=== PATIENT | female | born 1995 | race Caucasian/White ===

== ENCOUNTER 2019-06-04 19:28 | Emergency (ER) | payer SELFPAY ==
[2019-06-04 19:31] VITALS: BP 115/72; PULSE 90; RESP 18; TEMP 36.4; O2SAT 95; BMI 43.4
--- NOTE | 2019-06-04 19:32 | ED_ITS ---
Entered by Kamryn Victor, acting as scribe for Onel Rodriguez MD HPI - Nausea/Vomiting/Diarrhea General: Chief complaint: Nausea/Vomiting/Diarrhea Stated complaint: congested/vomiting Time Seen by Provider: 06/04/19 19:31 Source: patient Mode of arrival: ambulatory Limitations: no limitations History of Present Illness: HPI Narrative: 24 yo female presents to ED with complaints of nausea, vomiting, and coughing. She said it began last week. She said she has a lot of congestion. She has been unable to keep anything down for the last 2 days (last time vomited 1 hour ago). She said she has vomited so much that she has a rash around eyes and has popped a blood vessel in L eye. She said she usually smokes but has not for last couple of days because she has been so sick. MD elicited complaint: nausea and vomiting Onset (ago): day(s) (2) Associated nausea: Yes Associated abdominal pain: Yes Location of pain: Diffuse Radiation: diffuse Pain consistency: constant Severity: severe Quality: aching Exacerbating factors: eating Relieving factors: none Context: sick contacts and smoking Associated symtoms: Reports cough, nausea and rash; Denies change in vision, chest pain or headache(s) Treatment prior to arrival: none Review of Systems Const: Denies: fever or chills Eyes: Denies: change in vision ENMT: Denies: throat pain or mouth pain Card: Denies: chest pain Resp: Reports: shortness of breath GI: Reports: nausea : Denies: difficulty urinating Musc: Denies: back pain or joint pain Neuro: Denies: headache or behavioral changes Psych: Denies: depression Endo: Denies: excessive urination Elvin/Lymph: Denies: easy bruising All/Imm: Denies: hives PFSH ED PFSH: Statuses (acute, chronic, etc) shown below reflect problem list status as previously entered and may not be historically accurate Social History Smoking and tobacco status: current every day smoker Physical Exam Const: COMMON NORMALS: no apparent distress and healthy appearing HENMT: COMMON NORMALS: normocephalic and external nose normal HEAD & SCALP: normocephalic NOSE: external nose normal and no nasal discharge (nasal dischage) Eye: COMMON NORMALS: PERRL PUPIL: Yes PERRL Neck/C-Spine: COMMON NORMALS: full ROM and no lymphadenopathy Chest: COMMONS NORMALS: inspection of chest normal Resp: COMMON NORMALS: normal respiratory effort EFFORT & INSPECTION: Yes audible wheezes Cardio: COMMON NORMALS: regular rate and regular rhythm RATE: regular rate RHYTHM: regular rhythm GI: COMMON NORMALS: soft to palpation PALPATION: Yes soft Extremity: COMMON NORMALS: normal to inspection, full ROM and normal capillary refill Psych: COMMON NORMALS: mental status grossly normal and cooperative Skin: COMMON NORMALS: no rashes or lesions noted GENERAL SKIN EXAM: no rashes or lesions noted Course Vital Signs: Vital signs: Vital Signs Temperature 97.6 F 06/04/19 19:31 Pulse Rate 78 06/04/19 21:41 Respiratory Rate 18 06/04/19 21:41 Blood Pressure 119/74 06/04/19 21:41 Pulse Oximetry 98 06/04/19 21:41 MDM - Nausea/Vomiting/Diarrhea MDM Narrative: Medical decision making narrative: Patient presents here with cough along with vomiting. Cough is likely viral in origin and her vomiting is much improved after Zofran. Will prescribe her an inhaler along with Keflex and Zofran. Patient is stable for discharge and is to follow-up with primary care doctor. She has no abdominal pain and abdominal exam here is benign. Lab Data: Labs: Lab Results 06/04/19 Range/Units 20:30 Influenza Type A A g Negative (Negative) POC Influenza B Ag Negative (Negative) Imaging Data^: CXR: Radiologist's impression: [facility] Final Radiology Report Call: [phone] assistance Online chat: [email or web address] Name: BENNETT ROSENBAUM Age: 24Years F Date: 06/04/2019 SSN: -- : [id number] Study: XR CHEST 2 VIEWS Requesting Physician: onel Rodriguez Images: 2 Add?l Studies: Provided Clinical History: Pt complain of cough and congestion x 1.5 weeks and N/V for 3 days CONFIDENTIALITY STATEMENT This report is intended only for use by the referring physician, and only in accordance with law. If you received this in error, call [phone]. Page 1 of 1 PROCEDURE INFORMATION: Exam: XR Chest, 2 Views Exam date and time: 06/04/2019 7:38 PM Age: 24 years old Clinical indication: Cough; Additional info: PT complain of cough and congestion x 1.5 weeks and n/v for 3 days TECHNIQUE: Imaging protocol: XR of the chest Views: 2 views. COMPARISON: CR Chest 1 [place] [id number] 01/04/2019 12:50 AM FINDINGS: Lungs: Unremarkable. No consolidation. Pleural space: Unremarkable. No pleural effusion. No pneumothorax. Heart/Mediastinum: Unremarkable. No cardiomegaly. Bones/joints: Unremarkable. IMPRESSION: No acute findings. Thank you for allowing us to participate in the care of your patient. Dictated and Authenticated by: Radha Garcias MD 06/04/2019 Discharge Plan Discharge Patient Disposition: Home, Self-Care Clinical Impression: Acute upper respiratory infection, Vomiting Condition: Stable Prescriptions: New Keflex 500 mg capsule 500 mg PO Q6H 7 Days Qty: 28 RF: 0 albuterol sulfate 90 mcg/actuation HFA aerosol inhaler 2 inh INHALATION Q6H PRN (Reason: shortness of breath) Qty: 8 RF: 0 Zofran 4 mg tablet 4 mg PO QID PRN (Reason: nausea and vomiting) Qty: 14 RF: 0 Discharge Orders: Discharge Order (Routine); Ordered 06/04/19 Ordered By: Onel Rodriguez Referrals: Jaison Ga MD [Primary Care Provider] - 4-7 days Discharge Diet: Advance as tolerated Discharge Activity: Resume usual activity Patient Instructions: Upper Respiratory Infection (ED), Acute Nausea and Vomiting (ED) Discharge Date/Time: 06/04/19 21:42 Coding Level of Care Code ED Employee Benefits Specialist for Chg Fwd Exam Problem Focused The documentation recorded by the Kayleigh moss Valerie R, accurately reflects the service I personally performed and the decisions made by Michael suresh Korby, MD Jun 04, 2019 19:28
--- NOTE | 2019-06-04 19:37 | XRR_ITS ---
PROCEDURE INFORMATION: Exam: XR Chest, 2 Views Exam date and time: 06/04/2019 7:38 PM Age: 24 years old Clinical indication: Cough; Additional info: PT complain of cough and congestion x 1.5 weeks and n/v for 3 days TECHNIQUE: Imaging protocol: XR of the chest Views: 2 views. COMPARISON: CR Chest 1 [place] [id number] 01/04/2019 12:50 AM FINDINGS: Lungs: Unremarkable. No consolidation. Pleural space: Unremarkable. No pleural effusion. No pneumothorax. Heart/Mediastinum: Unremarkable. No cardiomegaly. Bones/joints: Unremarkable. XR/XR chest 2V* [id number] IMPRESSION: No acute findings.
[2019-06-04] MEDS: dexamethasone 10 mg/mL INJ IM (20:05)
[2019-06-04] MEDS: ondansetron 4 MG Tablet PO (20:05)
[2019-06-04 21:04] LABS: Influenza A by IFA Negative (Negative); Influenza B by IFA Negative (Negative)
[2019-06-04 21:41] VITALS: BP 119/74; PULSE 78; RESP 18; O2SAT 98
== END 2019-06-04 21:42 | disposition home or self-care (01) ==
PROVIDERS: Emergency Provider Emergency Medicine; PCP Family Medicine
DX: J06.9 Acute upper respiratory infection, unspecified (principal); R11.10 Vomiting, unspecified; F17.210 Nicotine dependence, cigarettes, uncomplicated
CPT/HCPCS: 71046; 87804; 96372; 99282; J1100; Q0162

== ENCOUNTER 2019-07-18 16:19 | Emergency (ER) | payer SELFPAY ==
[2019-07-18 16:28] VITALS: BP 109/71; PULSE 79; RESP 18; TEMP 36.5; O2SAT 94; BMI 44.9
--- NOTE | 2019-07-18 17:21 | W.ED.DENTAL ---
Documented by User: RODRI Ocampo 07/19/19 13:37 HPI - Dental/Oral General: Chief complaint: Dental/Oral Stated complaint: TOOTH PAIN Time Seen by Provider: 07/18/19 17:14 History of Present Illness: HPI Narrative: Patient is a 24-year-old female comes to the ED with dental pain. Patient says that she had a filling on her tooth #18 that popped off. She now has pain and tooth sensitivity. Any pressure hurts her tooth and it is sensitive to cold/heat. Symptoms started a couple days ago. She does not have a regular dentist and is been calling around to get something scheduled. Associated symptoms: Denies fever(s) or painful swallowing Review of Systems Const: Denies: fever, chills or fatigue Eyes: Denies: change in vision or eye discomfort ENMT: Reports: dental pain; Denies: throat pain, painful swallowing, nasal discharge or nasal congestion Card: Denies: chest pain, palpitations, edema, swelling of feet/ankles, shortness of breath on exertion or shortness of breath when lying down Resp: Denies: shortness of breath, productive cough or non-productive cough GI: Denies: abdominal pain, nausea, vomiting, diarrhea, constipation or blood in stool : Denies: flank pain, painful urination or blood in urine Musc: Denies: neck pain, back pain or extremity swelling Skin/Breast: Denies: rash or new lesion Neuro: Denies: headache, numbness in extremities or weakness in extremities PFS ED PFSH: Social History Smoking and tobacco status: current every day smoker Female Reproductive History: Date of last menstrual period: 06/04/19 Physical Exam Const: COMMON NORMALS: oriented x3 HENMT: COMMON NORMALS: normocephalic HEAD & SCALP: normocephalic MOUTH: oral and palatal mucosa normal TEETH & GINGIVA: Yes caries (Tooth number 18 had carier with cavity.) THROAT: posterior oropharynx normal and uvula midline Neck/C-Spine: COMMON NORMALS: supple GENERAL: Yes normal visual inspection Resp: COMMON NORMALS: normal respiratory effort, no retractions, no use of accessory muscles and clear to auscultation bilaterally AUSCULTATION: clear to auscultation bilaterally Cardio: COMMON NORMALS: regular rate, regular rhythm, S1 normal heart sound, S2 normal heart sound, no gallops, no clicks, no murmurs and peripheral pulses 2+ throughout RATE: regular rate RHYTHM: regular rhythm HEART SOUNDS: S1 normal and S2 normal PERIPHERAL PULSES: pulses 2+ throughout GI: COMMON NORMALS: normal to inspection, nondistended, normoactive bowel sounds, soft to palpation, non-tender and no masses PALPATION: Yes soft : COMMON NORMALS: Yes no CVA tenderness BLADDER/KIDNEY EXAM: Yes no CVA tenderness Back/Pelvis: COMMON NORMALS: no CVA tenderness Extremity: COMMON NORMALS: normal to inspection Neuro: COMMON NORMALS: oriented x3 and moves all extremities Skin: COMMON NORMALS: no rashes or lesions noted GENERAL SKIN EXAM: no rashes or lesions noted and dry skin Course Vital Signs: Vital signs: Vital Signs Temperature 97.7 F 07/18/19 16:28 Pulse Rate 68 07/18/19 17:53 Respiratory Rate 18 07/18/19 17:53 Blood Pressure 125/74 07/18/19 17:53 Pulse Oximetry 98 07/18/19 17:53 Discharge Plan Discharge Patient Disposition: Home, Self-Care Clinical Impression: Dental caries, Toothache Condition: Stable Prescriptions: New clindamycin HCl 150 mg capsule 300 mg PO QID 7 Days Qty: 56 RF: 0 No Action albuterol sulfate 90 mcg/actuation HFA aerosol inhaler 2 inh INHALATION Q6H PRN (Reason: shortness of breath) Qty: 8 RF: 0 Zofran 4 mg tablet 4 mg PO QID PRN (Reason: nausea and vomiting) Qty: 14 RF: 0 Discharge Orders: Discharge Order (Routine); Ordered 07/18/19 Ordered By: Jaison Aponte Referrals: Jaison Ga MD [Primary Care Provider] - Discharge Diet: Regular Discharge Activity: Resume usual activity Patient Instructions: Dental Caries (Cavities), Toothache (ED) Activity Restrictions/Additional Instructions: Follow-up with a dentist in the next 7 days for reevaluation. Take full course of antibiotics as prescribed. Take ibuprofen or Tylenol to help with pain. Discharge Date/Time: 07/18/19 17:56 Coding Level of Care Code ED Water Softener Service Supervisor for Chg Fwd Exam Comprehensive Documented by User: Sejal Ramirez 07/19/19 17:29 HPI - Dental/Oral General: Chief complaint: Dental/Oral Stated complaint: TOOTH PAIN Time Seen by Provider: 07/18/19 17:14 PFSH ED PFSH: Social History Smoking and tobacco status: current every day smoker Course Vital Signs: Vital signs: Vital Signs Temperature 97.7 F 07/18/19 16:28 Pulse Rate 68 07/18/19 17:53 Respiratory Rate 18 07/18/19 17:53 Blood Pressure 125/74 07/18/19 17:53 Pulse Oximetry 98 07/18/19 17:53 MDM - Dental/Oral MDM Narrative: Medical decision making narrative: This patient was not seen by me nor evaluated by me nor discussed with me by the midlevel provider. I was available in the ER if needed throughout their stay but was not involved or contacted about their care. I am signing this chart per hospital policy ? Dr. Ramirez. Discharge Plan Discharge Patient Disposition: Home, Self-Care Clinical Impression: Dental caries, Toothache Condition: Stable Prescriptions: New clindamycin HCl 150 mg capsule 300 mg PO QID 7 Days Qty: 56 RF: 0 No Action albuterol sulfate 90 mcg/actuation HFA aerosol inhaler 2 inh INHALATION Q6H PRN (Reason: shortness of breath) Qty: 8 RF: 0 Zofran 4 mg tablet 4 mg PO QID PRN (Reason: nausea and vomiting) Qty: 14 RF: 0 Discharge Orders: Discharge Order (Routine); Ordered 07/18/19 Ordered By: Jaison Aponte Referrals: Jaison Ga MD [Primary Care Provider] - Discharge Diet: Regular Discharge Activity: Resume usual activity Patient Instructions: Dental Caries (Cavities), Toothache (ED) Activity Restrictions/Additional Instructions: Follow-up with a dentist in the next 7 days for reevaluation. Take full course of antibiotics as prescribed. Take ibuprofen or Tylenol to help with pain. Discharge Date/Time: 07/18/19 17:56 Coding Level of Care Code ED Water Softener Service Supervisor for Chg Fwd Exam Comprehensive
[2019-07-18] MEDS: HYDROcodone-acetaminophen 7.5-325 mg Tablet 1 TAB PO (17:47)
[2019-07-18 17:53] VITALS: BP 125/74; PULSE 68; RESP 18; O2SAT 98
== END 2019-07-18 17:56 | disposition home or self-care (01) ==
PROVIDERS: Emergency Provider Physician Assistant; PCP Family Medicine
DX: K02.9 Dental caries, unspecified (principal); K08.89 Other specified disorders of teeth and supporting structures; F17.200 Nicotine dependence, unspecified, uncomplicated
CPT/HCPCS: 12345; 99281; 99283

== ENCOUNTER → 2020-03-16 09:35 | Outpatient (BNVA) | payer SELFPAY | PROVIDERS: PCP Family Medicine; Visit Provider Nurse Practitioner Women's Health | DX: N91.4 Secondary oligomenorrhea (principal); E66.01 Morbid (severe) obesity due to excess calories | CPT/HCPCS: 83001; 83036; 84146; 84402; 84439; 84443; 84450; 84702 ==

== ENCOUNTER → 2020-04-12 08:35 | Outpatient (BNVA) | payer BC, MEDICAID, SELFPAY | PROVIDERS: PCP Family Medicine; Visit Provider Nurse Practitioner Women's Health | DX: N91.5 Oligomenorrhea, unspecified (principal) | CPT/HCPCS: 76830 ==

== ENCOUNTER → 2020-05-14 13:41 | Outpatient (BNVA) | payer MEDICAID, SELFPAY | PROVIDERS: PCP Family Medicine; Visit Provider Family Medicine | DX: Z13.6 Encounter for screening for cardiovascular disorders (principal); E03.9 Hypothyroidism, unspecified | CPT/HCPCS: 80053; 80061; 84439; 84443; 85025 ==

== ENCOUNTER → 2020-07-31 14:31 | Outpatient (BNVA) | payer MEDICAID, SELFPAY | PROVIDERS: PCP Family Medicine; Visit Provider Nurse Practitioner Women's Health | DX: Z30.017 Encounter for initial prescription of implantable subdermal contraceptive (principal); E28.2 Polycystic ovarian syndrome | CPT/HCPCS: 81025 ==

== ENCOUNTER → 2020-09-17 15:39 | Outpatient (BNVA) | payer MEDICAID, SELFPAY | PROVIDERS: PCP Family Medicine; Visit Provider Family Medicine | DX: E03.9 Hypothyroidism, unspecified (principal) | CPT/HCPCS: 84443 ==

== ENCOUNTER → 2020-09-24 09:53 | Outpatient (BNVA) | payer MEDICAID, SELFPAY | PROVIDERS: PCP Family Medicine; Visit Provider Nurse Practitioner Family | DX: Z20.822 Contact with and (suspected) exposure to COVID-19 (principal) | CPT/HCPCS: 87635 ==

== ENCOUNTER → 2020-12-04 11:50 | Outpatient (BNVA) | payer MEDICAID, SELFPAY | PROVIDERS: PCP Family Medicine; Visit Provider Nurse Practitioner Family | DX: J06.9 Acute upper respiratory infection, unspecified (principal); Z20.822 Contact with and (suspected) exposure to COVID-19 | CPT/HCPCS: 87635 ==

== ENCOUNTER → 2020-12-26 09:26 | Outpatient (BNVA) | payer MEDICAID, SELFPAY | PROVIDERS: PCP Family Medicine; Visit Provider Nurse Practitioner Women's Health | DX: N92.6 Irregular menstruation, unspecified (principal) | CPT/HCPCS: 81025; 84702 ==

== ENCOUNTER → 2022-01-10 11:40 | Outpatient (BNVA) | payer BC, SELFPAY | PROVIDERS: PCP Family Medicine; Visit Provider Obstetrics & Gynecology | DX: E28.2 Polycystic ovarian syndrome (principal) | CPT/HCPCS: 83036; 83525; 84443 ==

== ENCOUNTER → 2022-02-10 12:36 | Outpatient (BNVA) | payer BC, SELFPAY | PROVIDERS: PCP Family Medicine; Visit Provider Obstetrics & Gynecology | DX: E28.2 Polycystic ovarian syndrome (principal) | CPT/HCPCS: 84443 ==

== ENCOUNTER 2022-05-30 13:45 | Outpatient (CLI) | payer BC, MEDICAID, SELFPAY ==
[2022-05-30 14:42] LABS: Thyroid Stimulating Hormone 2.26 uIU/mL (0.27-4.20)
[2022-05-31 12:21] LABS: Insulin ( Reference Lab Test) 10.6 uIU/mL
== END 2022-05-30 13:46 | disposition home or self-care (01) ==
LOC: LAB 13:50
PROVIDERS: PCP Family Medicine; Visit Provider Obstetrics & Gynecology
DX: E03.9 Hypothyroidism, unspecified (principal); E66.01 Morbid (severe) obesity due to excess calories
CPT/HCPCS: 36415; 83525; 84443

== ENCOUNTER 2022-07-05 14:55 | Emergency (ER) | payer BC, MEDICAID, SELFPAY ==
[2022-07-05 15:10] VITALS: BP 113/75; PULSE 73; TEMP 36.6; O2SAT 98; BMI 40.6
[2022-07-05 15:34] LABS: HCG Qualitative Urine. Negative (Negative)
--- NOTE | 2022-07-05 15:55 | ED_ITS ---
HPI - Female Genitourinary General: Chief complaint: Vaginal Bleeding Stated complaint: Heavy spotting after positive test Time Seen by Provider: 07/05/22 15:47 Source: patient Mode of arrival: ambulatory Limitations: no limitations History of Present Illness: 27-year-old female reports that she had a menstrual cycle 1 month ago. Yesterday she noted that she had some nausea and took a test. She has a faint positive vertical line on her test which she brought with her. Today she has had vaginal spotting . She presents for testing and further evaluation if necessary. Associated symptoms: Reports nausea Review of Systems General: Reports: 10 or more systems reviewed and unremarkable except in HPI and below Const: Reports: fatigue GI: Reports: nausea : Reports: vaginal bleeding PFSH ED PFSH: Medical History ADHD Hypothyroid Migraine with aura No pertinent past medical history neghx: htn,dm,thyroid,dvt/pe TIA (transient ischemic attack) (~2018) not medically diagnosed; reported facial drooping, aphasia Surgical History No pertinent past surgical history Family History Grandmother Breast cancer Maternal and Paternal--- 46, and late 40's Ovarian cancer Maternal-- dx age late 40's Family/Other Breast cancer Paternal aunt-- unknown dx age Heart disease Paternal Aunt Stroke Maternal uncle, Paternal aunts Father Diabetes Hypertension Grandfather Heart disease Maternal Stroke MGF Sister Thyroid disease Denies family history of Colon cancer Bleeding disorder Uterine cancer Social History Smoking and tobacco status: current every day smoker Physical Exam Const: COMMON NORMALS: no limitations, alert and well nourished EXAM LIMITATIONS: no altered mental status HENMT: COMMON NORMALS: normocephalic and atraumatic HEAD & SCALP: normocephalic and atraumatic MOUTH: no muffled voice Eye: COMMON NORMALS: EOMs intact bilaterally, conjunctivae normal and no scleral icterus CONJUNCTIVA: Yes conjunctivae normal Neck/C-Spine: GENERAL: Yes normal visual inspection and Yes trachea midline Resp: COMMON NORMALS: normal respiratory effort and No use of accessory muscles GI: COMMON NORMALS: Soft to palpation and non-tender PALPATION: Yes Soft to palpation and No Guarding due to palpation present (GI) Extremity: COMMON NORMALS: normal to inspection Neuro: COMMON NORMALS: moves all extremities, no focal motor deficits and no sensory deficits noted SENSORIUM/ORIENTATION: Yes alert SPEECH: speech normal Psych: COMMON NORMALS: mental status grossly normal, Normal thought process present, cooperative, normal affect and speech normal SPEECH: Yes normal speech THOUGHT PROCESS: Normal thought process present Skin: COMMON NORMALS: turgor normal and no jaundice GENERAL SKIN EXAM: turgor normal Course Vital Signs: Vital signs: Vital Signs Temperature 98 F 07/05/22 15:10 Pulse Rate 73 07/05/22 15:10 Blood Pressure 113/75 07/05/22 15:10 Pulse Oximetry 98 07/05/22 15:10 Oxygen Delivery Me thod 07/05/22 15:10 MDM - Female Medical Decision Making Urine test is negative. The plan is to have the patient do serial test at home. If they are positive, return to the emergency department for repeat testing here. If they are negative, then it is safe to assume that her vaginal bleeding is related to a menstrual cycle. The patient's abdomen is soft and nontender. She is in no distress. Her vitals are normal. Lab Data Laboratory Results HCG, Qual Negative (Negative) 07/05/22 15:20 Discharge Plan Discharge Patient Disposition: Home Clinical Impression: Vaginal bleeding, test negative Condition: Stable Prescriptions: No Action levothyroxine 75 mcg capsule 75 mcg PO DAILY Qty: 90 5RF metformin 500 mg tablet extended release 24 hr 500 mg PO DAILY Qty: 90 4RF Discharge Orders: Discharge ED (Routine); Ordered 07/05/22 Ordered By: Brigido Samuel Referrals: Wanda Nowak DO [Primary Care Provider] - Discharge Diet: Usual diet Discharge Activity: Resume usual activity Activity Restrictions/Additional Instructions: Take serial tests at home. If positive, return to ER for confirmation. Coding Level of Care Code ED Yield Improvement Engineer for Alondra Palacios
== END 2022-07-05 15:51 | disposition home or self-care (01) ==
PROVIDERS: Emergency Provider Emergency Medicine; PCP Family Medicine
DX: N93.9 Abnormal uterine and vaginal bleeding, unspecified (principal); Z32.02 Encounter for pregnancy test, result negative; F17.210 Nicotine dependence, cigarettes, uncomplicated
CPT/HCPCS: 81025; 99283

== ENCOUNTER → 2022-07-09 09:00 | Outpatient (BNVA) | payer BC, MEDICAID, SELFPAY | PROVIDERS: PCP Family Medicine; Visit Provider Nurse Practitioner Women's Health | DX: N93.9 Abnormal uterine and vaginal bleeding, unspecified (principal); Z32.01 Encounter for pregnancy test, result positive; Z32.02 Encounter for pregnancy test, result negative | CPT/HCPCS: 81025; 84702 ==

== ENCOUNTER 2022-08-25 16:44 | Emergency (ER) | payer BC, MEDICAID, SELFPAY ==
[2022-08-25 16:59] VITALS: BP 111/75; PULSE 96; RESP 16; TEMP 37.5; O2SAT 100; BMI 37.8
--- NOTE | 2022-08-25 17:00 | W.ED.URI ---
HPI - URI/Sore Throat General: Chief Complaint: Upper Respiratory Infection Stated Complaint: sore throat, left ear pain Time Seen by Provider: 08/25/22 16:59 History of Present Illness: 27-year-old female comes in today for complaints of left-sided sore throat. Patient appears nontoxic. Patient is able to manage secretions. Patient reports symptoms started last night. 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 Patient at this time is on metformin, levothyroxine for PCOS and attempting for . Associated symptoms: Deny abdominal pain, chest pain or headache(s) Review of Systems General: Reports: 10 or more systems reviewed and unremarkable except in HPI and below Const: Reports: body aches ENMT: Reports: throat pain Card: Denies: chest pain Resp: Denies: dyspnea GI: Denies: abdominal pain : Denies: flank pain Musc: Denies: back pain or extremity pain Skin/Breast: Denies: rash Neuro: Denies: headache(s) PFSH ED PFSH: Medical History ADHD Hypothyroid Migraine with aura No pertinent past medical history neghx: htn,dm,thyroid,dvt/pe TIA (transient ischemic attack) (~2018) not medically diagnosed; reported facial drooping, aphasia Surgical History No pertinent past surgical history Family History Grandmother Breast cancer Maternal and Paternal--- 46, and late 40's Ovarian cancer Maternal-- dx age late 40's Family/Other Breast cancer Paternal aunt-- unknown dx age Heart disease Paternal Aunt Stroke Maternal uncle, Paternal aunts Father Diabetes Hypertension Grandfather Heart disease Maternal Stroke MGF Sister Thyroid disease Denies family history of Colon cancer Bleeding disorder Uterine cancer Social History Smoking and tobacco status: current every day smoker Physical Exam Const: COMMON NORMALS: alert HENMT: COMMON NORMALS: normocephalic HEAD & SCALP: normocephalic THROAT: abnormal tonsil right erythema and exudates and left exudates, hypertrophy and crypts (Drainage) Eye: GENERAL EYE: appearance normal, both eyes and all related structures Neck/C-Spine: COMMON NORMALS: full ROM Lymph: LYMPHATIC: no lymphadenopathy noted Lymphadenopathy laterality: left (Mild left anterior) Resp: COMMON NORMALS: normal respiratory effort and clear to auscultation bilaterally AUSCULTATION: clear to auscultation bilaterally Cardio: COMMON NORMALS: regular rate and regular rhythm RATE: regular rate RHYTHM: regular rhythm GI: COMMON NORMALS: Soft to palpation PALPATION: Yes Soft to palpation Back/Pelvis: COMMON NORMALS: thoracic and lumbar spine normal to inspection Neuro: SENSORIUM/ORIENTATION: Yes alert Course Vital Signs: Vital signs: Vital Signs Temperature 99.5 F 08/25/22 16:59 Pulse Rate 96 08/25/22 16:59 Respiratory Rate 16 08/25/22 16:59 Blood Pressure 111/75 08/25/22 16:59 Pulse Oximetry 100 08/25/22 16:59 Oxygen Delivery Me thod Room Air 08/25/22 16:59 MDM - URI/Sore Throat Medical Decision Making 27-year-old female comes in today for complaints of sore throat worst being on the left than the right. On exam patient has some exudate to bilateral tonsils more increased swelling is noted to the left than the right tonsil. Airway is intact. Patient is managing secretions well. Vital signs are normal. Differential diagnosis includes strep pharyngitis, tonsillitis, tonsillar abscess, tonsillar cancer. No signs of severe illness was noted. Airway was intact and patient was managing secretions well. Due to the asymmetry of the illness I recommended follow-up with ENT for further evaluation and resolution of illness. Patient agreed with plan and case management order was placed. Patient was also recommended to return to the ER for worsening symptoms which she reported understanding. Lab Data Laboratory Results Group A Strep Rapid Negative (Negative) 08/25/22 17:38 Discharge Plan Discharge Patient Disposition: Home Clinical Impression: Exudative tonsillitis Condition: Stable Prescriptions: New clindamycin HCl 300 mg capsule 300 mg PO Q6H 7 Days Qty: 28 0RF ketorolac 10 mg tablet 10 mg PO Q6H PRN (Reason: pain) Qty: 14 0RF No Action levothyroxine 75 mcg capsule 75 mcg PO DAILY Qty: 90 5RF metformin 500 mg tablet extended release 24 hr 500 mg PO DAILY Qty: 90 4RF norethindrone (contraceptive) 0.35 mg tablet 0.35 mg PO DAILY Qty: 84 4RF Discharge Orders: Discharge ED (Routine); Ordered 08/25/22 Ordered By: Manjeet Falk Discharge Diet: Usual diet Discharge Activity: Increase activity as tolerated Patient Instructions: Tonsillitis (ED) Activity Restrictions/Additional Instructions: Take antibiotics clindamycin 300 mg 4 times a day for the next 7 days. Drink plenty of water with medication. Use acetaminophen to help control pain. Use ketorolac 10 mg 1 tablet every 6 hours as needed for severe pain. Do not use ketorolac with ibuprofen or naproxen containing products as it can lead to gastric irritation and GI bleed. Follow-up with primary care as needed. Case management will contact you for ENT follow-up. Return to emergency department for worsening symptoms such as inability to swallow and manage secretions, difficulty breathing or new concerns. Coding Level of Care Code ED Tawer for Alondra Palacios
[2022-08-25 18:06] LABS: Rapid Strep A Test Negative (Negative)
[2022-08-25] MEDS: clindamycin 150 mg Capsule 300 MG PO (18:10)
[2022-08-25] MEDS: ketorolac 30 mg/mL INJ IM (18:11)
[2022-08-25] MEDS: dexamethasone 10 mg/mL INJ IM (18:11)
--- NOTE | 2022-08-26 10:10 | DCPLANNER ---
Addendum entered by Krista Bell 09/23/22 14:51: This appointment was rescheduled Addendum entered by Krista Bell 08/28/22 07:48: Patient has a follow up appointment scheduled for Friday, September 16, 2022 at 8:[address] Romano at [facility]. Original Note: investments manager had message to schedule a follow up appointment for patient with ENT. investments manager sent patients information to the front office staff at [facility]. Patients information will be printed and reviewed. Clinic will call patient with appointment information.
--- NOTE | 2022-08-29 11:10 | DCPLANNER ---
product line manager called patient due to no primary care physician - patient stated that she sees Wanda Nowak for primary care.
== END 2022-08-25 18:21 | disposition home or self-care (01) ==
PROVIDERS: Emergency Provider Nurse Practitioner Family; PCP Family Medicine
DX: J03.90 Acute tonsillitis, unspecified (principal); Z79.84 Long term (current) use of oral hypoglycemic drugs; F17.210 Nicotine dependence, cigarettes, uncomplicated; Z86.73 Personal history of transient ischemic attack (TIA), and cerebral infarction without residual deficits
CPT/HCPCS: 87081; 87880; 96372; 99284; J1100; J1885

== ENCOUNTER → 2022-10-20 16:47 | Outpatient (BNVA) | payer BC, MEDICAID, SELFPAY | PROVIDERS: PCP Family Medicine; Visit Provider Registered Nurse Neonatal Intensive Care | DX: R05.9 Cough, unspecified (principal); B34.9 Viral infection, unspecified | CPT/HCPCS: 87426 ==

== ENCOUNTER → 2022-12-23 08:03 | Outpatient (BNVA) | payer BC, MEDICAID, SELFPAY | PROVIDERS: PCP Family Medicine; Visit Provider Nurse Practitioner Women's Health | DX: N92.6 Irregular menstruation, unspecified (principal) | CPT/HCPCS: 84702 ==

== ENCOUNTER 2023-01-16 12:21 | Emergency (ER) | payer BC, MEDICAID, SELFPAY ==
[2023-01-16 12:29] VITALS: BP 104/70; PULSE 73; RESP 18; TEMP 37.1; O2SAT 97; BMI 35.5
--- NOTE | 2023-01-16 12:43 | XR_ITS ---
WS: [id number] Cervical spine, 3 views, 01/16/2023 Clinical Data: neck pain, decreased ROM Comparison: Cervical spine, 01/04/2007 Findings: No compression fractures are seen. The disc heights are normal. There is no prevertebral so ft tissue swelling. The odontoid is unremarkable. The soft tissues of the neck and the lung apices ar e normal. Impression: Negative cervical spine.
--- NOTE | 2023-01-16 14:52 | W.ED.NECK ---
HPI - Neck Pain/Injury General: Chief Complaint: Neck Pain/Injury Stated Complaint: neck pain Time Seen by Provider: 01/16/23 14:33 Source: patient Mode of arrival: ambulatory Limitations: no limitations History of Present Illness: 28-year-old female presents to the ER today for left-sided neck stiffness and pain that began this morning. Patient reports no known injury. She reports when she woke up this morning she noticed some stiffness and is continued to worsen to the point that she cannot move her neck much without significant pain that radiates down her left arm. Patient reports she had this a couple of years ago and had to have a trigger point injection put in it. Patient denies doing anything different yesterday than normal. 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 Patient has not done anything for the pain at home today. Denies any numbness or tingling. Denies any other symptoms. Denies fever or chills. Review of Systems General: Reports: 10 or more systems reviewed and unremarkable except in HPI and below PFSH ED PFSH: Medical History ADHD Hypothyroid Migraine with aura No pertinent past medical history neghx: htn,dm,thyroid,dvt/pe TIA (transient ischemic attack) (~2018) not medically diagnosed; reported facial drooping, aphasia Surgical History No pertinent past surgical history Family History Grandmother Breast cancer Maternal and Paternal--- 46, and late 40's Ovarian cancer Maternal-- dx age late 40's Family/Other Breast cancer Paternal aunt-- unknown dx age Heart disease Paternal Aunt Stroke Maternal uncle, Paternal aunts Father Diabetes Hypertension Grandfather Heart disease Maternal Stroke MGF Sister Thyroid disease Denies family history of Colon cancer Bleeding disorder Uterine cancer Social History Smoking and tobacco status: current every day smoker Substance/Drug Use: never Physical Exam Const: COMMON NORMALS: average body habitus, patient oriented x3, no limitations, healthy appearing, alert and well nourished HENMT: COMMON NORMALS: normocephalic, atraumatic, external ears normal, Normal nasal mucous membranes and turbinates present and moist oral mucous membranes HEAD & SCALP: normocephalic and atraumatic NOSE: Normal nasal mucous membranes and turbinates present EXTERNAL EAR: Yes external ears normal Eye: COMMON NORMALS: conjunctivae normal CONJUNCTIVA: Yes conjunctivae normal Neck/C-Spine: COMMON NORMALS: no lymphadenopathy CERVICAL SPINE: Yes cervical ROM abnormal (tenderness and decreased ROM with flexion and rotation to the right) and Yes pain with cervical ROM OTHER: tenderness over the L sternocleidomastoid and trapezius Lymph: LYMPHATIC: no lymphadenopathy noted Resp: COMMON NORMALS: normal respiratory effort EFFORT & INSPECTION: Yes able to speak in complete sentences Cardio: COMMON NORMALS: regular rate and regular rhythm RATE: regular rate RHYTHM: regular rhythm Extremity: COMMON NORMALS: normal to inspection, full ROM and no pedal edema Neuro: COMMON NORMALS: patient oriented x3 SENSORIUM/ORIENTATION: Yes alert Psych: COMMON NORMALS: mental status grossly normal, Normal thought process present and cooperative THOUGHT PROCESS: Normal thought process present Skin: COMMON NORMALS: no rashes or lesions noted and no wounds GENERAL SKIN EXAM: no rashes or lesions noted Course ED course: Patient presents to the ER with left-sided neck pain and stiffness that began this morning. Denies any known injury. She did not do anything different than normal yesterday. Patient reports it is continued to get stiffer throughout the day. She has not take anything at this time. She had this a couple of years ago and needed trigger point injections. No history of neck problems. Patient has no numbness or tingling. No recent illnesses. No fever or chills reported. Vital signs are stable. Exam reveals decreased range of motion secondary to stiffness and pain over the left sternocleidomastoid and trapezius. Vital Signs: Vital signs: Vital Signs Temperature 98.7 F 01/16/23 12:29 Pulse Rate 73 01/16/23 12:29 Respiratory Rate 18 01/16/23 12:29 Blood Pressure 104/70 01/16/23 12:29 Pulse Oximetry 97 01/16/23 12:29 MDM - Neck Pain/Injury Medical Decision Making Patient appears to have a mild cervical strain of the left side of her neck. Tenderness of the left sternocleidomastoid and trapezius is noted with decreased range of motion secondary to stiffness and pain. Patient has no other symptoms that are concerning at this time. I would recommend we treat this conservatively with muscle relaxers and anti-inflammatories. Recommended topical Voltaren gel. Also recommended warm, moist heat. Okay to use a topical muscle rub but do not use with heat. Recommended stretches. If symptoms or not improving in 5 to 7 days follow-up with PCP. For any new or worsening symptoms return to the ER. Patient verbalized understanding was in agreement with the treatment plan. Critical Care Time Critical Care Time: Critical Care Time: No Discharge Plan Discharge Patient Disposition: Home Clinical Impression: Cervical strain, acute Qualifiers: Encounter type: initial encounter Qualified Code(s): S16.1XXA - Strain of muscle, fascia and tendon at neck level, initial encounter Condition: Stable Prescriptions: New ketorolac 10 mg tablet 10 mg PO Q8H 3 Days Qty: 12 0RF methocarbamol 750 mg tablet 750 mg PO Q8H Qty: 21 0RF Discontinued ketorolac 10 mg tablet 10 mg PO Q6H PRN (Reason: pain) Qty: 14 0RF No Action clotrimazole 10 mg alyse 10 mg mucous membrane TID 10 Days Qty: 30 0RF albuterol sulfate [Ventolin HFA] 90 mcg/actuation HFA aerosol inhaler 2 puff inhalation Q6H PRN (Reason: shortness of breath or wheezing) Qty: 8.5 0RF levothyroxine 75 mcg capsule 75 mcg PO DAILY Qty: 90 5RF metformin 500 mg tablet extended release 24 hr 500 mg PO DAILY Qty: 90 4RF norethindrone (contraceptive) 0.35 mg tablet 0.35 mg PO DAILY Qty: 84 4RF Discharge Orders: Discharge ED (Routine); Ordered 01/16/23 Ordered By: Katherine Cantu Referrals: Wanda Nowak DO [Primary Care Provider] - Discharge Diet: Usual diet Discharge Activity: Increase activity as tolerated Patient Instructions: Cervical Strain (DC), Opioid Safety, Pain Management Activity Restrictions/Additional Instructions: Take Robaxin/methocarbamol and ketorolac as prescribed. Warm, moist heat recommended on the left side of the neck. Topical muscle rubs such as Bengay or IcyHot also recommended but do not use with heat. Topical Voltaren gel recommended. Stretching recommended. Follow-up with PCP in 5 to 7 days if no improvement. Return to the ER with any new or worsening symptoms. Coding Level of Care Code ED Technical Support Technician for Alondra Palacios
== END 2023-01-16 14:57 | disposition home or self-care (01) ==
PROVIDERS: Emergency Provider Physician Assistant; PCP Family Medicine
DX: S16.1XXA Strain of muscle, fascia and tendon at neck level, initial encounter (principal); Z79.84 Long term (current) use of oral hypoglycemic drugs; F17.210 Nicotine dependence, cigarettes, uncomplicated; Z86.73 Personal history of transient ischemic attack (TIA), and cerebral infarction without residual deficits; X58.XXXA Exposure to other specified factors, initial encounter
CPT/HCPCS: 72040; 99283

== ENCOUNTER → 2023-01-21 15:47 | Outpatient (BNVA) | payer BC, MEDICAID, SELFPAY | PROVIDERS: PCP Family Medicine; Visit Provider Nurse Practitioner Women's Health | DX: Z32.00 Encounter for pregnancy test, result unknown (principal); Z20.2 Contact with and (suspected) exposure to infections with a predominantly sexual mode of transmission; Z12.4 Encounter for screening for malignant neoplasm of cervix | CPT/HCPCS: 81025; 87491; 87591; 88175 ==

== ENCOUNTER 2023-04-05 08:47 | Emergency (ER) | payer BC, MEDICAID, SELFPAY ==
[2023-04-05 09:02] VITALS: BP 123/72; PULSE 74; RESP 16; TEMP 36.8; O2SAT 100; BMI 33.0
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
[2023-04-05 10:16] VITALS: BP 118/76; PULSE 88; O2SAT 97
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
[2023-04-05 11:43] VITALS: BP 105/52; PULSE 61; O2SAT 96
--- NOTE | 2023-04-05 11:49 | PC.PHAR ---
PT AND FAMILY STATE SHE STILL TAKES THE MEDS ON HER LIST. EXTERNAL MED LIST SHOWS FILL DATES OF JULY AND OCTOBER! 04/05/23
[2023-04-05 12:00] VITALS: BP 111/64; PULSE 62; O2SAT 99
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
[2023-04-05 12:30] VITALS: BP 113/69; PULSE 67; O2SAT 97
[2023-04-05 12:34] LABS: Glucose Point of Care 93 mg/dL (70-110)
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
[2023-04-05 13:00] VITALS: BP 114/72; PULSE 67; O2SAT 98
[2023-04-05 13:16] LABS: HCG Qualitative Urine. Negative (Negative)
[2023-04-05 13:24] LABS: Bilirubin Urine Neg (Negative); Blood Urine Neg (Negative); Glucose Urine UA Norm (Normal); Ketones Urine 1+ (Negative); Leukocyte Esterase Urine Negative (Negative); Nitrate Urine Negative (Negative); Protein Urine Neg (Negative); Specific Gravity, Urine 1.005 (1.005-1.030); Squamous Epithelial Cell Urine 0-4 /hpf (0-5); Urine Appearance Clear (CLEAR); Urine Color Yellow (Yellow); Urobilinogen Urine Norm (Negative); WBC Urine 0-4 /hpf (0-5); pH Urine 7 (5-7)
[2023-04-05 13:25] LABS: Add Urine Culture? No; Bacteria Urine TRACE /hpf
[2023-04-05 14:06] LABS: Glucose Point of Care 76 mg/dL (70-110)
== END 2023-04-05 14:23 | disposition home or self-care (01) ==
PROVIDERS: Emergency Provider Internal Medicine; PCP Family Medicine
DX: T14.8XXA Other injury of unspecified body region, initial encounter (principal); Z79.84 Long term (current) use of oral hypoglycemic drugs; Z86.73 Personal history of transient ischemic attack (TIA), and cerebral infarction without residual deficits; Z72.0 Tobacco use; V57.5XXA Driver of pick-up truck or van injured in collision with fixed or stationary object in traffic accident, initial encounter
CPT/HCPCS: 36416; 70450; 72040; 72072; 72100; 81001; 81025; 82962; 99284

== ENCOUNTER 2023-08-13 22:04 | Emergency (ER) | payer MEDICAID, SELFPAY ==
[2023-08-13 22:05] VITALS: BP 116/75; PULSE 65; RESP 14; TEMP 36.5; O2SAT 98
--- NOTE | 2023-08-13 22:26 | ED_ITS ---
HPI - Abdominal Pain 2 General: Chief Complaint: Abdominal Pain Stated Complaint: Lower abd pain Time Seen by Provider: 08/13/23 22:14 Source: patient Mode of arrival: ambulatory Limitations: no limitations History of Present Illness: 28yo female presents with right sided pe lvic pain that started approximately 1 hour prior to arrival. Patient reports that initially she thought she was having cramps, but it has become increasingly more painful. Patient reports it is a burning type pain. She states that she does have some relief when she applies pressure. Patient reports that she does not have nausea when the pain started. She states that she does have a history of fibroids as well as ovarian cysts. She reports that this feels much worse than her previous ovarian cyst. She states that her last menstrual cycle was about a month and a half ago, but she does have PCOS and this is not abnormal for her. She denies vaginal bleeding, recent illness, vomiting, diarrhea. 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 Associated Symptoms: Reports nausea; Denies chills, diarrhea, fever(s) and vomiting Review of Systems 2 Const: Denies: fever(s) or chills GI: Reports: nausea; Denies: vomiting or diarrhea : Reports: pelvic pain (right); Denies: vaginal bleeding PFSH ED 2 PFSH: Medical History Hypothyroid TIA (transient ischemic attack) (~2018) not medically diagnosed; reported facial drooping, aphasia No pertinent past medical history neghx: htn,dm,thyroid,dvt/pe Migraine with aura ADHD Surgical History No pertinent past surgical history Family History Grandmother Breast cancer Maternal and Paternal--- 46, and late 40's Ovarian cancer Maternal-- dx age late 40's Family/Other Breast cancer Paternal aunt-- unknown dx age Heart disease Paternal Aunt Stroke Maternal uncle, Paternal aunts Father Diabetes Hypertension Grandfather Heart disease Maternal Stroke MGF Sister Thyroid disease Denies family history of Colon cancer Bleeding disorder Uterine cancer Social History Smoking and tobacco/nicotine status: current every day tobacco/nicotine user Substance/Drug Use: never Physical Exam 2 Const: COMMON NORMALS: no acute distress GENERAL APPEARANCE: cooperative ORIENTATION/CONSCIOUSNESS: Yes awake OTHER: Patient is sitting upright in a bedside chair holding her right pelvic area as if in pain, but is in no acute distress. She is able to give history with no difficulty. She is interactive with exam appropriately. No family is at bedside. HENMT: COMMON NORMALS: normocephalic HEAD & SCALP: normocephalic Neck/C-Spine: COMMON NORMALS: full ROM Chest: CHEST: Yes Symmetrical chest wall rise Resp: COMMON NORMALS: normal respiratory effort EFFORT & INSPECTION: Yes able to speak in complete sentences Cardio: COMMON NORMALS: regular rate RATE: regular rate GI: COMMON NORMALS: Soft to palpation PALPATION: Yes Soft to palpation and Yes Tenderness to palpation present (GI) Details: other (right pelvic) GI image (female): 1. tenderness to palpation : COMMON NORMALS: Yes no CVA tenderness BLADDER/KIDNEY EXAM: Yes no CVA tenderness Back/Pelvis: COMMON NORMALS: no CVA tenderness Extremity: COMMON NORMALS: full ROM Course 2 ED course: Pelvic US indicates a Small complex lesion without internal vascularity measuring approximately 1.8 cm noted, likely representing hemorrhagic cyst at right ovary. Uterine fibroids Vital Signs: Vital signs: Vital Signs Temperature 97.7 F 08/13/23 22:05 Pulse Rate 65 08/13/23 22:05 Respiratory Rate 18 08/13/23 23:35 Blood Pressure 116/75 08/13/23 22:05 Pulse Oximetry 98 08/13/23 22:05 Oxygen Delivery Me thod Room Air 08/13/23 22:05 MDM - Abdominal Pain Medical Decision Making 28yo female here with right-sided pelvic pain that started approximately 1 hour prior to arrival. Patient reports initially she thought it was cramps, but it has worsened significantly. She reports that she does have a history of ovarian cyst, but this is much worse than any previous cyst she has had. She states she does have a history of PCOS. Last menstrual cycle was approximately 1.5 months ago. She denies any vaginal bleeding, recent illness, fever, vomiting, diarrhea, dysuria. Patient is nontoxic in appearance. Vital signs are stable. Differential diagnosis includes but is not limited to: Ovarian torsion, ectopic , ovarian cyst, appendicitis, acute cystitis, endometriosis, kidney stone White blood cell count is elevated at 11.65, otherwise CBC is unremarkable. CMP is grossly unremarkable. UPT is negative. UA is grossly unremarkable. Pelvic ultrasound does indicate a possible right ovarian hemorrhagic cyst measuring 1.8 cm. Uterine fibroids were also noted, otherwise no acute findings. Discussed these findings with patient. Patient did report improvement in her symptoms after medication administration. Discussed with patient that the cyst will likely resolve on its own. Prescription of ketorolac was sent to patient's pharmacy as well as a short supply of hydrocodone for severe pain. Discussed sedation precautions. Recommend patient continue to monitor her symptoms closely. Advised to follow-up with primary care, call tomorrow with an update of symptoms and to discuss a recheck. Recommend she return to the emergency department if any rapid worsening symptoms, onset of fever associated with worsening, significant increase in pain, vaginal bleeding with increased pain, and as needed. Patient states understanding has no further questions or concerns at this time. Medical Records I reviewed the patient's medical records. Lab Data I reviewed the patient's lab results. 08/13/23 22:43 08/13/23 22:43 Labs/Radiology: Radiology Impressions Pelvic/Transvag US 08/13/23 22:45 IMPRESSION: 1. No acute findings. 2. Fibroid uterus. Laboratory Results WBC 11.65 10^3/uL (3.29-11.43) H 08/13/23 22:43 RBC 4.67 10^6/uL (3.85-5.65) 08/13/23 22:43 Hgb 14.90 g/dL (11.27-16.99) 08/13/23 22:43 Hct 43.1 % (36-47) 08/13/23 22:43 MCV 92.3 fl (85-98) 08/13/23 22:43 MCH 31.9 pg (27-33) 08/13/23 22:43 MCHC 34.6 g/dL (30-55) 08/13/23 22:43 RDW 12.1 % (12.1-15.1) 08/13/23 22:43 Plt Count 281 10^3/cmm (157-399) 08/13/23 22:43 MPV 9.3 fL (7.4-10.4) 08/13/23 22:43 Neut % (Auto) 57.8 % 08/13/23 22:43 Lymph % (Auto) 25.2 % 08/13/23 22:43 Perry % (Auto) 6.0 % 08/13/23 22:43 Eos % (Auto) 10.3 % 08/13/23 22:43 Baso % (Auto) 0.4 % 08/13/23 22:43 Neut # (Auto) 6.74 10^3/uL (1.8-7.7) 08/13/23 22:43 Lymph # (Auto) 2.9 10^3/uL (0.8-4.8) 08/13/23 22:43 Perry # (Auto) 0.7 10^3/uL (0.2-0.9) 08/13/23 22:43 Eos # (Auto) 1.2 10^3/uL (0.0-0.8) H 08/13/23 22:43 Baso # (Auto) 0.1 10^3/uL (0.0-0.1) 08/13/23 22:43 Nucleated RBC % (auto) 0 % 08/13/23 22:43 Nucleated RBCs # 0.0 /100WBC 08/13/23 22:43 Sodium 140 mmol/L (136-145) 08/13/23 22:43 Potassium 4.1 mmol/L (3.5-5.1) 08/13/23 22:43 Chloride 106 mmol/L (98-107) 08/13/23 22:43 Carbon Dioxide 23 mmol/L (22-29) 08/13/23 22:43 Anion Gap 15.1 (5-19) 08/13/23 22:43 BUN 15 mg/dL (6-20) 08/13/23 22:43 Creatinine 0.7 mg/dL (0.5-0.9) 08/13/23 22:43 GFR Calculation 101.1 mL/min (90-130) 08/13/23 22:43 Glucose 101 mg/dL (65-115) 08/13/23 22:43 Calculated Osmolality 291 mOsm/kg (285-295) 08/13/23 22:43 Calcium 9.2 mg/dL (8.5-10.5) 08/13/23 22:43 Total Bilirubin 0.3 mg/dL (0.15-1.2) 08/13/23 22:43 AST 15 U/L (0-32) 08/13/23 22:43 ALT 12 U/L (0-33) 08/13/23 22:43 Alkaline Phosphatase 74 U/L (35-105) 08/13/23 22:43 Total Protein 7.3 g/dL (6.6-8.7) 08/13/23 22:43 Albumin 4.3 g/dL (3.5-5.2) 08/13/23 22:43 Globulin 3.0 g/dL (1.3-4.6) 08/13/23 22:43 HCG, Qual Negative (Negative) 08/13/23 22:12 Urine Color Yellow (Yellow) 08/13/23 22:12 Urine Appearance Clear (CLEAR) 08/13/23 22:12 Urine pH 5 (5-7) 08/13/23 22:12 Ur Specific [place] 1.020 (1.005-1.030) 08/13/23 22:12 Urine Protein Neg (Negative) 08/13/23 22:12 Urine Glucose (UA) Norm (Normal) 08/13/23 22:12 Urine Ketones Negative (Negative) 08/13/23 22:12 Urine Blood Neg (Negative) 08/13/23 22:12 Urine Nitrate Negative (Negative) 08/13/23 22:12 Urine Bilirubin Neg (Negative) 08/13/23 22:12 Urine Urobilinogen Neg mg/dL (Negative) 08/13/23 22:12 Ur Leukocyte Esterase Negative (Negative) 08/13/23 22:12 All radiology interpretation(s) finalized by discharge Discharge Plan Discharge Patient Disposition: Home Clinical Impression: Hemorrhagic cyst of right ovary Fibroid, uterine Qualifiers: Uterine leiomyoma location: intramural Qualified Code(s): D25.1 - Intramural leiomyoma of uterus Condition: Stable Prescriptions: New ketorolac 10 mg tablet 10 mg PO Q6H PRN (Reason: pain) 5 Days Qty: 20 0RF hydrocodone-acetaminophen 5-325 mg tablet 1 tab PO Q6H PRN (Reason: pain, severe) Qty: 8 0RF No Action metformin 500 mg tablet extended release 24 hr 500 mg PO DAILY Qty: 30 0RF levothyroxine 75 mcg capsule 75 mcg PO DAILY Qty: 30 0RF albuterol sulfate [Ventolin HFA] 90 mcg/actuation HFA aerosol inhaler 2 puff inhalation Q6H PRN (Reason: shortness of breath or wheezing) Qty: 8.5 0RF levothyroxine 75 mcg capsule 75 mcg PO DAILY Qty: 90 5RF metformin 500 mg tablet extended release 24 hr 500 mg PO DAILY Qty: 90 4RF Discharge Orders: Discharge ED (Routine); Ordered 08/14/23 Ordered By: Champ Dave Referrals: Wanda Nowak DO [Primary Care Provider] - Discharge Diet: Advance as tolerated Discharge Activity: Increase activity as tolerated Patient Instructions: Ovarian Cyst (ED), Uterine Fibroids (ED), Opioid Safety Activity Restrictions/Additional Instructions: The ultrasound did indicate that you have a right hemorrhagic cyst as well as uterine fibroids The cyst should resolve on its own, but may be very painful. Ketorolac has been sent to your pharmacy to use for pain. Short course hydrocodone has been sent to your pharmacy for severe pain. 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
[2023-08-13 22:31] LABS: Add Urine Microscopic? NO; Charge for UA Resulting for Rev
[2023-08-13 22:43] LABS: Bilirubin Urine Neg (Negative); Blood Urine Neg (Negative); Glucose Urine UA Norm (Normal); Ketones Urine Negative (Negative); Leukocyte Esterase Urine Negative (Negative); Nitrate Urine Negative (Negative); Protein Urine Neg (Negative); Urine Appearance Clear (CLEAR); Urine Color Yellow (Yellow); Urobilinogen Urine Neg (Negative); pH Urine 5 (5-7)
[2023-08-13 22:44] LABS: HCG Qualitative Urine. Negative (Negative)
--- NOTE | 2023-08-13 22:45 | USR_ITS ---
PROCEDURE INFORMATION: Exam: US Pelvis Limited, Transabdominal and US Pelvis, Transvaginal Exam date and time: 08/13/2023 11:06 PM Age: 28 years old Clinical indication: Patient HX: G4- [id number] presenting with right pelvic pain x 1 hour. 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 She is not at this time. ; Additional info: Right pelvic pain, severe LABS AND CLINICAL REPORTS: Choriogonadotropin in serum (Serum HCG): 0 mIU/mL Last menstrual period start date: 06/29/2023 TECHNIQUE: Imaging protocol: Real-time transabdominal and transvaginal pelvic ultrasound (limited) with image documentation. Transvaginal imaging was used for better evaluation of the endometrium, adnexa, and/or cervix. COMPARISON: US OB <=14 wk fetus w transvag 05/01/2019 7:56 AM FINDINGS: Uterus: Uterus measures 6.3 cm x 4.7 cm x 3.6 cm. Intramural fibroids linear seen along the posterior wall, the largest measuring 2.2 cm. Normal endometrium measuring 0.7 cm in thickness. Right ovary/adnexa: Right ovary measures 3.2 cm x 3.1 cm x 2.2 cm. Right ovarian volume is 11.6 mL. Small complex lesion without internal vascularity measuring approximately 1.8 cm noted, likely representing hemorrhagic cyst. Left ovary/adnexa: Left ovary measures 2.2 cm x 1.2 cm x 3.2 cm. Left ovarian volume is 2.5 mL. Intraperitoneal space: Trace amount of free fluid noted in the pelvis, likely physiologic. US/US pelvis lmt w transvag IMPRESSION: 1. No acute findings. 2. Fibroid uterus.
[2023-08-13 22:48] LABS: Basophils # 0.1 10^3/uL (0.0-0.1); Basophils % 0.4 %; Eosinophils # 1.2 10^3/uL (0.0-0.8); Eosinophils % 10.3 %; Hematocrit 43.1 % (36-47); Lymphocytes # 2.9 10^3/uL (0.8-4.8); Lymphocytes % 25.2 %; Mean Corpuscular HGB Conc 34.6 g/dL (30-55); Mean Corpuscular Hemoglobin 31.9 pg (27-33); Mean Corpuscular Volume 92.3 fl (85-98); Mean Platelet Volume 9.3 fL (7.4-10.4); Monocytes # 0.7 10^3/uL (0.2-0.9); Neutrophils # 6.74 10^3/uL (1.8-7.7); Neutrophils % 57.8 %; Nucleated Red Blood Cells % 0 %; Platelet Count 281 10^3/cmm (157-399); Red Blood Count 4.67 10^6/uL (3.85-5.65); Red Cell Distribution Width 12.1 % (12.1-15.1); White Blood Count 11.65 10^3/uL (3.29-11.43)
[2023-08-13 23:05] LABS: Alanine Aminotransferase 12 U/L (0-33); Albumin Level 4.3 g/dL (3.5-5.2); Alkaline Phosphatase 74 U/L (35-105); Anion Gap 15.1 (5-19); Aspartate Amino Transferase 15 U/L (0-32); Blood Urea Nitrogen 15 mg/dL (6-20); Calcium 9.2 mg/dL (8.5-10.5); Carbon Dioxide 23 mmol/L (22-29); Chloride 106 mmol/L (98-107); Creatinine Clr Calc Pharmacy 114.7911; Glomerular Filtration Rate 101.1 mL/min (90-130); Glucose 101 mg/dL (65-115); Osmolality Calculated 291 mOsm/kg (285-295); Potassium 4.1 mmol/L (3.5-5.1); Sodium 140 mmol/L (136-145); Total Bilirubin 0.3 mg/dL (0.15-1.2); Total Protein 7.3 g/dL (6.6-8.7)
[2023-08-13 23:35] VITALS: RESP 18
[2023-08-13] MEDS: ondansetron 2 mg/ML SDV 2 mL 4 MG IVP (23:35)
[2023-08-13] MEDS: morphine 4 mg/mL SDV 1 mL IVP (23:35)
== END 2023-08-14 00:56 | disposition home or self-care (01) ==
PROVIDERS: Emergency Provider Nurse Practitioner; PCP Family Medicine
DX: N83.201 Unspecified ovarian cyst, right side (principal); D25.1 Intramural leiomyoma of uterus; Z72.0 Tobacco use; Z86.73 Personal history of transient ischemic attack (TIA), and cerebral infarction without residual deficits
CPT/HCPCS: 76830; 76857; 80053; 81003; 81025; 85025; 96374; 96375; 99284; J2270; J2405

== ENCOUNTER 2023-11-12 18:38 | Emergency (ER) | payer MEDICAID, SELFPAY ==
[2023-11-12 18:46] VITALS: BP 111/73; PULSE 70; RESP 16; TEMP 36.6; O2SAT 97
[2023-11-12 18:47] LABS: Glucose Point of Care 85 mg/dL (70-110)
--- NOTE | 2023-11-12 19:19 | ED_ITS ---
HPI - Skin/Abscess/Foreign Bdy 2 General: Chief complaint: Skin/Abscess/Foreign Body Stated complaint: Spider Bite on left foot Time Seen by Provider: 11/12/23 19:01 Source: patient Mode of arrival: ambulatory Limitations: no limitations History of Present Illness: Patient is a 28-year-old female here with concerns of a possible spider bite to her right foot that she noticed yesterday and into today. She states she visualized a spider in her bed and just assumed that is what caused the lesion. She states she is having some mild paresthesias surrounding the bite. She has noticed small amount of redness and blistering. complaint: insect bite/sting and lesion Onset (ago): day(s) Tetanus up to date: yes Location: R foot Severity: mild Quality: burning Pain Consistency: constant Relieving factors: none Exacerbating factors: none Context: none and other (saw a spider in her bed) Associated symptoms: Reports no associated symptoms; Deny chills or fever(s) Treatments prior to arrival: none Review of Systems 2 Const: Denies: fever(s), chills, body aches or fatigue Musc: Reports: extremity pain; Denies: neck pain, back pain, extremity swelling, joint pain or joint swelling Skin/Breast: Reports: erythema Neuro: Denies: weakness in extremities or difficulty walking PFSH ED 2 PFSH: Medical History Hypothyroid TIA (transient ischemic attack) (~2018) not medically diagnosed; reported facial drooping, aphasia No pertinent past medical history neghx: htn,dm,thyroid,dvt/pe Migraine with aura ADHD Surgical History No pertinent past surgical history Family History Grandmother Breast cancer Maternal and Paternal--- 46, and late 40's Ovarian cancer Maternal-- dx age late 40's Family/Other Breast cancer Paternal aunt-- unknown dx age Heart disease Paternal Aunt Stroke Maternal uncle, Paternal aunts Father Diabetes Hypertension Grandfather Heart disease Maternal Stroke MGF Sister Thyroid disease Denies family history of Colon cancer Bleeding disorder Uterine cancer Social History (Reviewed 11/12/23 @ 19:57 by MARY Lundy Smoking and tobacco/nicotine status: current every day tobacco/nicotine user Substance/Drug Use: never Physical Exam 2 Const: COMMON NORMALS: no acute distress, average body habitus, patient oriented x3, no limitations, alert and well nourished GENERAL APPEARANCE: c ooperative Extremity: EXTREMITY IMAGE (FRONT): 1. small 0.5cm vesicular lesion that has partially ruptured with a small amount of erythema/edema; no streaking Neuro: COMMON NORMALS: patient oriented x3, moves all extremities, no focal motor deficits and no sensory deficits noted SENSORIUM/ORIENTATION: Yes alert Skin: NARRATIVE SKIN EXAM: see above Course 2 Vital Signs: Vital signs: Vital Signs Temperature 97.8 F 11/12/23 19:39 Pulse Rate 67 11/12/23 19:39 Respiratory Rate 16 11/12/23 19:39 Blood Pressure 112/71 11/12/23 19:39 Pulse Oximetry 98 11/12/23 19:39 Oxygen Delivery Me thod Room Air 11/12/23 18:46 MDM - Skin/Abscess/Foreign Bdy Medicial Decision Making Lesion probably is a bite/sting of some sort. Discussed treatment at home and careful watching of symptoms. Lesion slightly open and she was wearing dirty/sweaty socks over so will go ahead and cover/prevent secondary bacterial infection. Medical Records I reviewed the patient's medical records. Lab Data Laboratory Results POC Glucose 85 mg/dL (70-110) 11/12/23 18:44 No radiology studies performed this visit Discharge Plan Discharge Patient Disposition: Home Clinical Impression: Bite or sting by insect Condition: Stable Prescriptions: New Bactrim DS 800-160 mg tablet 1 tab PO BID 7 Days Qty: 14 0RF mupirocin 2 % ointment 1 applic topical BID Qty: 15 0RF No Action metformin 500 mg tablet extended release 24 hr 500 mg PO DAILY Qty: 30 0RF levothyroxine 75 mcg capsule 75 mcg PO DAILY Qty: 30 0RF albuterol sulfate [Ventolin HFA] 90 mcg/actuation HFA aerosol inhaler 2 puff inhalation Q6H PRN (Reason: shortness of breath or wheezing) Qty: 8.5 0RF levothyroxine 75 mcg capsule 75 mcg PO DAILY Qty: 90 5RF metformin 500 mg tablet extended release 24 hr 500 mg PO DAILY Qty: 90 4RF hydrocodone-acetaminophen 5-325 mg tablet 1 tab PO Q6H PRN (Reason: pain, severe) Qty: 8 0RF Discharge Orders: Discharge ED (Routine); Ordered 11/12/23 Ordered By: Grace Botello Referrals: Wanda Nowak DO [Primary Care Provider] - Patient Instructions: Brown Recluse Spider Bite, Insect Bite or Sting (ED) Coding 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
[2023-11-12] MEDS: sulfamethoxazole-trimeth DS 160-800 mg Tablet 1 TAB PO (19:38)
[2023-11-12 19:39] VITALS: BP 112/71; PULSE 67; RESP 16; TEMP 36.6; O2SAT 98
== END 2023-11-12 19:41 | disposition home or self-care (01) ==
PROVIDERS: Emergency Provider Physician Assistant; PCP Family Medicine
DX: S90.861A Insect bite (nonvenomous), right foot, initial encounter (principal); W57.XXXA Bitten or stung by nonvenomous insect and other nonvenomous arthropods, initial encounter; Z86.73 Personal history of transient ischemic attack (TIA), and cerebral infarction without residual deficits; Z72.0 Tobacco use; Z79.84 Long term (current) use of oral hypoglycemic drugs
CPT/HCPCS: 36416; 82962; 99283

== ENCOUNTER → 2023-12-29 11:52 | Outpatient (BNVA) | payer MEDICAID, SELFPAY | PROVIDERS: PCP Family Medicine; Visit Provider Nurse Practitioner Family | DX: N92.6 Irregular menstruation, unspecified (principal) | CPT/HCPCS: 81025 ==

== ENCOUNTER 2023-12-31 19:40 | Emergency (ER) | payer SELFPAY ==
[2023-12-31 20:06] VITALS: BP 102/68; PULSE 100; RESP 22; TEMP 36.7; O2SAT 93; BMI 31.9
[2023-12-31 20:08] VITALS: RESP 20; O2SAT 98
--- NOTE | 2023-12-31 20:36 | XRR_ITS ---
PROCEDURE INFORMATION: Exam: XR Chest Exam date and time: 12/31/2023 8:49 PM Age: 28 years old Clinical indication: Dyspnea; Additional info: Shortness of breath TECHNIQUE: Imaging protocol: Radiologic exam of the chest. Views: 1 view. COMPARISON: CR XR chest 2V* [id number] 06/04/2019 7:48 PM FINDINGS: Lungs: Unremarkable. No consolidation. Pleural spaces: Unremarkable. No pleural effusion. No pneumothorax. Heart/Mediastinum: No cardiomegaly. Bones/joints: Linear lucency coursing through the left neck into the upper mediastinum. No acute osseous findings. XR/XR chest 1V portable [id number] IMPRESSION: 1. No acute cardiopulmonary process. 2. Linear lucency along the base of the neck and coursing along the upper mediastinum is favored to be artifactual. Subcutaneous gas considered less likely.
--- NOTE | 2023-12-31 20:37 | ED_ITS ---
HPI - SOB/Dyspnea General: Chief Complaint: Shortness of Breath/Dyspnea Stated Complaint: SOB Time Seen by Provider: 12/31/23 20:33 History of Present Illness: HPI Narrative: 28-year-old female with history of asthm a who presents to the emergency room with cough, shortness of breath, dizziness nausea and some posttussive emesis. She has some pain with deep breathing. She has been feeling bad for couple days now. No known fevers. No altered mental status. No abdominal pain. Related Data Previous Rx's Medication Instructions Recorded albuterol sulfate 90 mcg/actuation 2 puff inhalation Q6H PRN 10/21/22 aerosol inhaler (Ventolin HFA) shortness of breath or wheezing #8.5 grams ondansetron HCl 8 mg tablet 8 mg PO Q12H PRN nausea and 12/29/23 vomiting #10 tabs benzonatate 200 mg capsule 200 mg PO TID PRN cough #30 caps 12/31/23 doxycycline hyclate 100 mg capsule 100 mg PO BID 7 days #14 caps 12/31/23 ondansetron 8 mg disintegrating 8 mg PO Q6H #14 tabs 12/31/23 tablet prednisone 20 mg tablet 60 mg (3 x 20 mg) PO DAILY #20 tabs 12/31/23 Allergies Allergy/AdvReac Type Severity Reaction Status Date / Time lavender (Lavandula Allergy Unknown Verified 12/29/23 11:43 angustifolia) jeffery Allergy ALGY-Hives Verified 12/29/23 11:43 concerta Allergy ADR-Agitate Uncoded 12/29/23 11:43 d Review of Systems Narrative: Constitutional symptoms: Negative except as documented in HPI. Skin symptoms: Negative except as documented in HPI. Eye symptoms: Negative except as documented in HPI. ENMT symptoms: Negative except as documented in HPI. Respiratory symptoms: Negative except as documented in HPI. Cardiovascular symptoms: Negative except as documented in HPI. Gastrointestinal symptoms: Negative except as documented in HPI. Genitourinary symptoms: Negative except as documented in HPI. Musculoskeletal symptoms: Negative except as documented in HPI. Neurologic symptoms: Negative except as documented in HPI. Psychiatric symptoms: Negative except as documented in HPI. Endocrine symptoms: Negative except as documented in HPI. PFS ED PFSH: Medical History Psychiatric care Hypothyroid TIA (transient ischemic attack) (~2018) not medically diagnosed; reported facial drooping, aphasia No pertinent past medical history neghx: htn,dm,thyroid,dvt/pe Migraine with aura ADHD Surgical History No pertinent past surgical history Family History Grandmother Breast cancer Maternal and Paternal--- 46, and late 40's Ovarian cancer Maternal-- dx age late 40's Family/Other Breast cancer Paternal aunt-- unknown dx age Heart disease Paternal Aunt Stroke Maternal uncle, Paternal aunts Father Diabetes Hypertension Grandfather Heart disease Maternal Stroke MGF Sister Thyroid disease Denies family history of Colon cancer Bleeding disorder Uterine cancer Social History Smoking and tobacco/nicotine status: current every day tobacco/nicotine user Substance/Drug Use: never Physical Exam Narrative: EXAM NARRATIVE: General: Alert, no acute distress. Skin: Warm, dry. Head: Normocephalic, atraumatic. Neck: Supple, trachea midline. Eye: Extraocular movements are intact. Ears, nose, mouth and throat: Oral mucosa moist. Cardiovascular: Regular rate and rhythm, Normal peripheral perfusion. Respiratory: coarse, scattered wheeze, mild increased wob. tachypnea, breath sounds are equal, Symmetrical chest wall expansion. Gastrointestinal: Soft, Nontender, Non distended, Normal bowel sounds. Musculoskeletal: Normal ROM, no deformity. Neurological: Alert and oriented to person, place, time, and situation, No focal neurological deficit observed. Psychiatric: Cooperative, appropriate mood & affect. Course Vital Signs: Vital signs: Vital Signs Temperature 98.0 F 12/31/23 20:06 Pulse Rate 88 12/31/23 21:18 Respiratory Rate 16 12/31/23 21:18 Blood Pressure 102/68 12/31/23 20:06 Pulse Oximetry 96 12/31/23 21:18 Oxygen Delivery Me thod Room Air 12/31/23 21:18 MDM - SOB/Dyspnea Medical Decision Making Differential diagnosis for patient with shortness of breath includes but is not limited to and based on the above HPI, review of systems and physical exam: Pneumonia. Bronchitis. Asthma or COPD with acute exacerbation. Acute coronary syndrome / [place]. Pulmonary embolism. Anxiety. Congestive heart failure. Viral infections including influenza and Covid-19. Atrial fibrillation. Anxiety. Pleural effusion. Pneumothorax. Workup: Lab work, chest X-ray and EKG ordered to evaluate, rule in and rule out above pathologies Chest x-ray: No acute process. No infiltrate. No pneumothorax. This was reviewed and interpreted by myself the ER physician. Lab Review: Laboratory results were reviewed and interpreted by myself the emergency room physician. COVID is pending at discharge. I reviewed the patient's medical record. Reexamination: Patient appears somewhat improved. No increased work of breathing at this time. Oxygen saturations are good. Assessment and plan: Asthma exacerbation Nausea and vomiting Dehydration Viral illness -Normal saline bolus. 2 updrafts. IV Solu-Medrol. IV doxycycline. IV Zofran. - Discharged home - Discussed plan with patient. Answered any questions. - Evaluation and treatment of this problem were appropriate in the emergency setting. All radiology interpretation(s) finalized by discharge Discharge Plan Discharge Patient Disposition: Home Clinical Impression: Asthma with exacerbation, Dehydration Condition: Stable Prescriptions: New doxycycline hyclate 100 mg capsule 100 mg PO BID 7 Days Qty: 14 0RF prednisone 20 mg tablet 60 mg PO DAILY Qty: 20 0RF Rx Instructions: 3 tabs (60 mg) x 3 days. 2 tabs (40 mg) x 3 days. 1 tab (20 mg) x 3 days. 1/2 tab (10 mg) x 4 days ondansetron 8 mg tablet,disintegrating 8 mg PO Q6H Qty: 14 0RF Rx Instructions: Take 1/2-1 tab every 6 hours as needed for nausea and vomiting benzonatate 200 mg capsule 200 mg PO TID PRN (Reason: cough) Qty: 30 0RF No Action albuterol sulfate [Ventolin HFA] 90 mcg/actuation HFA aerosol inhaler 2 puff inhalation Q6H PRN (Reason: shortness of breath or wheezing) Qty: 8.5 0RF ondansetron HCl 8 mg tablet 8 mg PO Q12H PRN (Reason: nausea and vomiting) Qty: 10 0RF Discharge Orders: Discharge ED (Routine); Ordered 12/31/23 Ordered By: Reanna Holder Discharge Diet: Usual diet Discharge Activity: Increase activity as tolerated Patient Instructions: Asthma (ED) Activity Restrictions/Additional Instructions: Thank you for choosing [facility] for your healthcare needs today. Coleman solomon realize this is an emergency room and that we are providing you with a medical screening exam and this may not be complete and all inclusive of all the testing and or work up that you may need to determine your ailment or severity of your illness. You have been screened and evaluated and felt safe for discharge. Health conditions do change or evolve sometimes and as such it is important that you follow up with your Primary Doctor to be re checked, 3-5 days is a general good time frame for follow up. You are always welcome to return to the ED for re assessment if your symptoms are worsening or you have new concerns Coding Level of Care Code ED Frame Straightener for Alondra Palacios
[2023-12-31 21:08] VITALS: RESP 18; O2SAT 94
[2023-12-31] MEDS: ondansetron 2 mg/ML SDV 2 mL 8 MG IVP (21:14)
[2023-12-31] MEDS: doxycycline 100 MG in sodium chloride 0.9% (plus) 100 ML IV (21:16)
[2023-12-31] MEDS: methylPREDNISolone sod succ 125 mg/2 mL INJ IVP (21:16)
[2023-12-31] MEDS: ipratropium-albuterol 3 mL Neb INHALATION (21:16)
[2023-12-31] MEDS: albuterol 2.5 mg/3 mL Neb INHALATION (21:16)
[2023-12-31 21:18] VITALS: PULSE 88; RESP 16; O2SAT 96
[2023-12-31] MEDS: sodium chloride 0.9% 1,000 ML 999 ML IV (21:20)
[2023-12-31 22:08] VITALS: BP 181/126; RESP 22; O2SAT 96
[2023-12-31 22:34] VITALS: BP 129/71; PULSE 80; RESP 20; O2SAT 92
[2023-12-31] MEDS: acetaminophen 500 mg Tablet 1000 MG PO (22:44)
[2024-01-01 00:09] LABS: Adenovirus Not Detected (NOT DETECT); Chlamydia Pneumoniae Not Detected (NOT DETECT); Coronavirus 229E,HKU1,NL63,OC4 Not Detected (NOT DETECT); Human Metapneumovirus Not Detected (NOT DETECT); Human Rhinovirus/Enterovirus Detected (NOT DETECT); Influenza A Not Detected (NOT DETECT); Influenza A H1 Not Detected (NOT DETECT); Influenza A H1-2009 Not Detected (NOT DETECT); Influenza A H3 Not Detected (NOT DETECT); Influenza B Not Detected (NOT DETECT); Mycoplasma Pneumoniae Not Detected (NOT DETECT); Parainfluenza Virus Type 1 Not Detected (NOT DETECT); Parainfluenza Virus Type 2 Not Detected (NOT DETECT); Parainfluenza Virus Type 3 Not Detected (NOT DETECT); Parainfluenza Virus Type 4 Not Detected (NOT DETECT); Respiratory Syncytial Virus A Not Detected (NOT DETECT); Respiratory Syncytial Virus B Not Detected (NOT DETECT); SARS-COV-2 Not Detected (NOT DETECT)
[2024-01-01 00:29] LABS: Human Metapneumovirus Not Detected (NOT DETECT); Human Rhinovirus/Enterovirus Detected (NOT DETECT); Results from GEN
== END 2023-12-31 22:44 | disposition home or self-care (01) ==
PROVIDERS: Emergency Provider Emergency Medicine
DX: J45.901 Unspecified asthma with (acute) exacerbation (principal); E86.0 Dehydration; Z72.0 Tobacco use; Z86.73 Personal history of transient ischemic attack (TIA), and cerebral infarction without residual deficits
CPT/HCPCS: 71045; 87635; 87801; 94640; 96365; 96375; 99284; J2405; J2919; J3490; J7030; J7613

== ENCOUNTER → 2024-03-24 10:58 | Outpatient (BNVA) | payer OTHER, SELFPAY | PROVIDERS: PCP Nurse Practitioner Family; Visit Provider Nurse Practitioner | DX: N92.6 Irregular menstruation, unspecified (principal); Z32.02 Encounter for pregnancy test, result negative | CPT/HCPCS: 81025 ==

== ENCOUNTER 2024-04-17 05:09 | Inpatient (IN) | payer SELFPAY ==
[2024-04-17 05:20] VITALS: BP 143/75; PULSE 102; RESP 22; TEMP 36.8; O2SAT 97; BMI 32.1
[2024-04-17 05:54] LABS: HCG Qualitative Urine. Negative (Negative)
--- NOTE | 2024-04-17 05:58 | ED.C_ITS ---
HPI - Psych 2 General: Chief Complaint: Psychiatric Symptoms Stated Complaint: SI Time Seen by Provider: 04/17/24 05:14 History of Present Illness: 29-year-old female presents to the emerg ency room complaining of depression. She has been out of her meds last couple weeks should be getting refilled this for the weekend but she helped to take them yesterday. Patient admits to suicide attempt a couple weeks ago by overdosing on prazosin she got nauseous and vomited, slept for few hours reports she is very busy but then recovered. She never sought care after that episode. She continues to have suicidal thoughts she now was planning on car monoxide poisoning by putting something in the tailpipe of a car. Finally get into the car with the windows closed. Presents to the emergency room with complaints of suicidal ideation and depression. Related Data Previous Rx's Medication Instructions Recorded omeprazole magnesium 20 mg 20 mg PO DAILY #30 tabs 01/19/24 tablet,delayed release (Prilosec OTC) venlafaxine 75 mg capsule,extended 75 mg PO QAM #30 caps 01/28/24 release 24 hr (Effexor XR) Allergies Allergy/AdvReac Type Severity Reaction Status Date / Time lavender (Lavandula Allergy Unknown Verified 04/17/24 05:25 angustifolia) jeffery Allergy ALGY-Hives Verified 04/17/24 05:25 methylphenidate Allergy ADR-Agitate Verified 04/17/24 05:25 [From Concerta] d Review of Systems 2 Const: Denies: fever(s) or chills Card: Denies: chest pain Resp: Reports: non-productive cough, wheezing and chest congestion; Denies: dyspnea GI: Denies: abdominal pain : Denies: dysuria, urinary frequency or urinary urgency Musc: Denies: neck pain or back pain Skin/Breast: Denies: rash PFSH ED 2 PFSH: Medical History Depression Asthma Type 2 diabetes mellitus Borderline personality disorder Cannabis use disorder Psychiatric care Hypothyroid TIA (transient ischemic attack) (~2017) not medically diagnosed; reported facial drooping, aphasia No pertinent past medical history neghx: htn,dm,thyroid,dvt/pe Migraine with aura Surgical History No pertinent past surgical history Family History Grandmother Breast cancer Maternal and Paternal--- 46, and late 40's Ovarian cancer Maternal-- dx age late 40's Family/Other Breast cancer Paternal aunt-- unknown dx age Heart disease Paternal Aunt Stroke Maternal uncle, Paternal aunts Father Diabetes Hypertension Grandfather Heart disease Maternal Stroke MGF Sister Thyroid disease Denies family history of Colon cancer Bleeding disorder Uterine cancer Social History Smoking and tobacco/nicotine status: current every day tobacco/nicotine user cigarettes Second hand smoke exposure: No Alcohol intake: never Substance/Drug Use: current Substance/Drug use frequency: daily Other substance/drug use details: cbd Adopted: No Caregiver/support person: No Lives independently: Yes Physical Exam 2 Const: GENERAL APPEARANCE: cooperative ORIENTATION/CONSCIOUSNESS: Yes awake, Yes oriented to person, Yes oriented to place and Yes oriented to time HENMT: COMMON NORMALS: normocephalic, atraumatic and hearing grossly normal bilaterally HEAD & SCALP: normocephalic and atraumatic Resp: COMMON NORMALS: normal respiratory effort, No retractions, No use of accessory muscles and clear to auscultation bilaterally AUSCULTATION: clear to auscultation bilaterally Cardio: COMMON NORMALS: regular rate, regular rhythm and No murmurs present (Cardio) RATE: regular rate RHYTHM: regular rhythm GI: COMMON NORMALS: Soft to palpation and No hepatosplenomegaly present A USCULTATION: Yes normoactive bowel sounds PALPATION: Yes Soft to palpation, No Tenderness to palpation present (GI), No Guarding due to palpation present (GI) and Yes No hepatosplenomegaly present Extremity: COMMON NORMALS: normal to inspection, capillary refill normal, no clubbing, cyanosis or edema, no calf tenderness and no pedal edema Neuro: SENSORIUM/ORIENTATION: Yes oriented to person, Yes oriented to place and Yes oriented to time Skin: COMMON NORMALS: no rashes or lesions noted GENERAL SKIN EXAM: no rashes or lesions noted Course 2 Vital Signs: Vital signs: Vital Signs Temperature 98.2 F 04/17/24 05:20 Pulse Rate 86 04/18/24 13:39 Respiratory Rate 16 04/18/24 13:39 Blood Pressure 109/62 04/18/24 13:39 Pulse Oximetry 98 04/18/24 13:39 Oxygen Delivery Me thod Room Air 04/18/24 13:39 MDM - Psych Medical Decision Making Patient presents with recent suicide attempt with no evaluation at that time. At that point she had attempted overdose by taking several prazosin. This time she continues to have suicidal ideation but is now planning a different attempt by carbon oxide poisoning and a closed vehicle. Initially seen patient she was willing to stay now she is beginning to express a desire to leave she wants to go home and pack up states hard of her problem her depression is the relationship she is in with her boyfriend. Given her suicide attempt and continued suicidal ideation with planning will place her on a 96-hour hold continuing to search for facility to transfer patient. Labs reviewed, positive but low blood alcohol level Staff continue to work to find a place for patient to be transferred. Ultimately we were able to keep her here in the course of looking for a bed while we had secured 1 we had not yet been able to get transportation to [place] in that same timeframe the bed became available at our own facility. The transfer was canceled patient was admitted to our facility to Dr. Vela care orders written Medical Records I reviewed the patient's medical records. Lab Data I reviewed the patient's lab results. 04/17/24 05:57 04/17/24 05:57 Radiology Impressions Chest X-Ray 04/17/24 06:09 IMPRESSION: No acute findings. Laboratory Results WBC 7.32 10^3/uL (3.29-11.43) 04/17/24 05:57 RBC 4.59 10^6/uL (3.85-5.65) 04/17/24 05:57 Hgb 14.40 g/dL (11.27-16.99) 04/17/24 05:57 Hct 42.2 % (36-47) 04/17/24 05:57 MCV 91.9 fl (85-98) 04/17/24 05:57 MCH 31.4 pg (27-33) 04/17/24 05:57 MCHC 34.1 g/dL (30-55) 04/17/24 05:57 RDW 12.2 % (12.1-15.1) 04/17/24 05:57 Plt Count 236 10^3/cmm (157-399) 04/17/24 05:57 MPV 9.0 fL (7.4-10.4) 04/17/24 05:57 Neut % (Auto) 70.8 % 04/17/24 05:57 Lymph % (Auto) 22.0 % 04/17/24 05:57 [place] % (Auto) 6.3 % 04/17/24 05:57 Eos % (Auto) 0.5 % 04/17/24 05:57 Baso % (Auto) 0.1 % 04/17/24 05:57 Neut # (Auto) 5.18 10^3/uL (1.8-7.7) 04/17/24 05:57 Lymph # (Auto) 1.6 10^3/uL (0.8-4.8) 04/17/24 05:57 [place] # (Auto) 0.5 10^3/uL (0.2-0.9) 04/17/24 05:57 Eos # (Auto) 0.0 10^3/uL (0.0-0.8) 04/17/24 05:57 Baso # (Auto) 0.0 10^3/uL (0.0-0.1) 04/17/24 05:57 Nucleated RBC % (auto) 0 % 04/17/24 05:57 Nucleated RBCs # 0.0 /100WBC 04/17/24 05:57 Sodium 139 mmol/L (136-145) 04/17/24 05:57 Potassium 3.9 mmol/L (3.5-5.1) 04/17/24 05:57 Chloride 104 mmol/L (98-107) 04/17/24 05:57 Carbon Dioxide 23 mmol/L (22-29) 04/17/24 05:57 Anion Gap 15.9 (5-19) 04/17/24 05:57 BUN 13 mg/dL (6-20) 04/17/24 05:57 Creatinine 0.9 mg/dL (0.5-0.9) 04/17/24 05:57 GFR Calculation 75.1 mL/min (90-130) L 04/17/24 05:57 Glucose 111 mg/dL (65-115) 04/17/24 05:57 POC Glucose 65 mg/dL (70-110) L 04/18/24 08:32 Calculated Osmolality 289 mOsm/kg (285-295) 04/17/24 05:57 Calcium 9.3 mg/dL (8.5-10.5) 04/17/24 05:57 Total Bilirubin 0.4 mg/dL (0.15-1.2) 04/17/24 05:57 AST 14 U/L (0-32) 04/17/24 05:57 ALT 11 U/L (0-33) 04/17/24 05:57 Alkaline Phosphatase 76 U/L (35-105) 04/17/24 05:57 Total Protein 6.9 g/dL (6.6-8.7) 04/17/24 05:57 Albumin 4.1 g/dL (3.5-5.2) 04/17/24 05:57 Globulin 2.8 g/dL (1.3-4.6) 04/17/24 05:57 HCG, Qual Negative (Negative) 04/17/24 05:42 Urine Color Yellow (Yellow) 04/17/24 05:42 Urine Appearance Cloudy (CLEAR) A 04/17/24 05:42 Urine pH 6.0 (5-7) 04/17/24 05:42 Ur Specific [place] 1.031 (1.005-1.030) H 04/17/24 05:42 Urine Protein Negative (Negative) 04/17/24 05:42 Urine Glucose (UA) Negative (Normal) 04/17/24 05:42 Urine Ketones Negative (Negative) 04/17/24 05:42 Urine Blood Negative (Negative) 04/17/24 05:42 Urine Nitrate Negative (Negative) 04/17/24 05:42 Urine Bilirubin Negative (Negative) 04/17/24 05:42 Urine Urobilinogen 1.0 mg/dL (Negative) 04/17/24 05:42 Ur Leukocyte Esterase Negative (Negative) 04/17/24 05:42 Urine RBC 0-4 /hpf (0-2) H 04/17/24 05:42 Urine WBC 0-4 /hpf (0-5) H 04/17/24 05:42 Ur Squamous Epith Cells 10-15 /hpf (0-5) H 04/17/24 05:42 Amorphous Sediment Not Reportable 04/17/24 05:42 Urine Bacteria Trace /hpf (NONE) 04/17/24 05:42 Urine Mucus 3+ /hpf 04/17/24 05:42 Salicylates < 0.3 mg/dL (3-10) L 04/17/24 05:57 Urine Opiates Screen Negative ng/mL (Negative) 04/17/24 05:42 Acetaminophen < 5.0 ug/mL (10-30) L 04/17/24 05:57 Ur Barbiturates Screen Negative ng/mL (Negative) 04/17/24 05:42 Ur Phencyclidine Scrn Negative ng/mL (Negative) 04/17/24 05:42 Ur Amphetamines Screen Negative ng/mL (Negative) 04/17/24 05:42 U Benzodiazepines Scrn Negative ng/mL (Negative) 04/17/24 05:42 Urine Cocaine Screen Negative ng/mL (Negative) 04/17/24 05:42 U Marijuana (THC) Screen Positive ng/mL (Negative) H 04/17/24 05:42 Ethyl Alcohol 14 mg/dL (0-10) H 04/17/24 05:57 Coronavirus (PCR) Negative (Negative) 04/17/24 05:42 Influenza A (PCR) Negative (Negative) 04/17/24 05:42 Influenza Type B (PCR) Negative (Negative) 04/17/24 05:42 RSV (PCR) Negative (Negative) 04/17/24 05:42 All radiology interpretation(s) finalized by discharge Discharge Plan Discharge Patient Disposition: Admitted As Inpatient Admit Provider: Brayan Vela Clinical Impression: Suicidal ideation, Depression, Type 2 diabetes mellitus, Asthma Condition: Stable Coding Level of Care Code ED Archery Equipment Repairer for Alondra Palacios
[2024-04-17 06:04] LABS: Basophils % 0.1 %; Eosinophils % 0.5 %; Hematocrit 42.2 % (36-47); Lymphocytes # 1.6 10^3/uL (0.8-4.8); Mean Corpuscular HGB Conc 34.1 g/dL (30-55); Mean Corpuscular Hemoglobin 31.4 pg (27-33); Mean Corpuscular Volume 91.9 fl (85-98); Monocytes # 0.5 10^3/uL (0.2-0.9); Monocytes % 6.3 %; Neutrophils # 5.18 10^3/uL (1.8-7.7); Neutrophils % 70.8 %; Nucleated Red Blood Cells % 0 %; Platelet Count 236 10^3/cmm (157-399); Red Blood Count 4.59 10^6/uL (3.85-5.65); Red Cell Distribution Width 12.2 % (12.1-15.1); White Blood Count 7.32 10^3/uL (3.29-11.43)
--- NOTE | 2024-04-17 06:09 | XRR_ITS ---
PROCEDURE INFORMATION: Exam: XR Chest Exam date and time: 04/17/2024 6:16 AM Age: 29 years old Clinical indication: Cough; Additional info: Dyspnea/cough TECHNIQUE: Imaging protocol: Radiologic exam of the chest. Views: 1 view. COMPARISON: CR XR chest 1V portable [id number] 12/31/2023 8:49 PM FINDINGS: Lungs: Unremarkable. No consolidation. Pleural spaces: Unremarkable. No pleural effusion. No pneumothorax. Heart/Mediastinum: Unremarkable. No cardiomegaly. Bones/joints: Unremarkable. XR/XR chest 1V portable [id number] IMPRESSION: No acute findings.
[2024-04-17 06:24] LABS: Alanine Aminotransferase 11 U/L (0-33); Albumin Level 4.1 g/dL (3.5-5.2); Alcohol Level 14 mg/dL (0-10); Alkaline Phosphatase 76 U/L (35-105); Anion Gap 15.9 (5-19); Aspartate Amino Transferase 14 U/L (0-32); Blood Urea Nitrogen 13 mg/dL (6-20); Calcium 9.3 mg/dL (8.5-10.5); Carbon Dioxide 23 mmol/L (22-29); Chloride 104 mmol/L (98-107); Creatinine Clr Calc Pharmacy 88.2302; Globulin 2.8 g/dL (1.3-4.6); Glomerular Filtration Rate 75.1 mL/min (90-130); Glucose 111 mg/dL (65-115); Osmolality Calculated 289 mOsm/kg (285-295); Potassium 3.9 mmol/L (3.5-5.1); Sodium 139 mmol/L (136-145); Total Bilirubin 0.4 mg/dL (0.15-1.2); Total Protein 6.9 g/dL (6.6-8.7)
[2024-04-17 06:30] LABS: Bilirubin Urine Negative (Negative); Blood Urine Negative (Negative); Glucose Urine UA Negative (Normal); Ketones Urine Negative (Negative); Leukocyte Esterase Urine Negative (Negative); Nitrate Urine Negative (Negative); Protein Urine Negative (Negative); Urine Appearance Cloudy (CLEAR); Urine Color Yellow (Yellow)
[2024-04-17 06:31] LABS: Acetaminophen < 5.0 ug/mL (10-30); Salicylate < 0.3 mg/dL (3-10)
[2024-04-17 06:37] LABS: Amphetamines Screen Urine Negative (Negative); Barbiturates Screen Urine Negative (Negative); Benzodiazepines Screen Urine Negative (Negative); Cocaine Screen Urine Negative (Negative); Opiate Screen Urine Negative (Negative); PCP Screen Urine Negative (Negative); THC Screen Urine Positive (Negative)
[2024-04-17 06:43] LABS: Add Urine Culture? No; Add Urine Microscopic? YES; Bacteria Urine TRACE /hpf; Mucus Urine 3+ /hpf; RBC Urine 0-4 /hpf (0-2); Specific Gravity, Urine 1.031 (1.005-1.030); WBC Urine 0-4 /hpf (0-5)
--- NOTE | 2024-04-17 06:56 | PC.NURSE ---
PT BOYFRIEND ARRIVED AND TOLD REGISTRATION DESK THAT HE WAS HERE TO PICK PT UP. PT REQUESTED THIS NURSE TO NOT LET BOYFRIEND KNOW ANY INFORMATION. PT STATED THAT SHE DID STILL WANT TO VOLUNTARILY ADMIT HERSELF TO A PSYCH [facility] SO SHE WOULD NOT BE TRYING TO LEAVE. PT TEARFUL WITH THIS NURSE WHEN TALKING ABOUT HER BOYFRIEND BEING HERE. PT WAS OKAY WITH THIS NURSE TELLING HER BOYFRIEND SHE WAS HERE AND SAFE, BUT TO NOT TELL HIM ANY OF THE DETAILS. PT BOYFRIEND WAS NOTIFIED OF PT BEING HERE AND SAFE BUT THAT WAS ALL HE COULD KNOW AT THIS TIME. PT BOYFRIEND COOPERATIVE AND LEFT FACILITY WITH NO ISSUES.
[2024-04-17 07:11] LABS: Covid PCR NEGATIVE (Negative); Influenza A NEGATIVE (Negative); Influenza B NEGATIVE (Negative); Respiratory Syncytial Virus Ce NEGATIVE (Negative)
--- NOTE | 2024-04-17 09:30 | PC.PHAR ---
patient is supposed to be on metformin 500 and levothyroxine 75 mcg but hasnt been filled since july 2023
[2024-04-17 10:30] VITALS: BP 102/53; PULSE 82; O2SAT 95
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
--- NOTE | 2024-04-18 01:58 | PC.NURSE ---
to room. pt requesting food and water. sandwich and water provided. pt asking for update on plan of care. info provided at this time. no other needs at this time. sitter in place. bed low/locked. will continue to monitor.
--- NOTE | 2024-04-18 05:32 | PC.NURSE ---
to room. pt resting comfortably with eyes closed. resps even and non labored. no needs identified. bed low/lcoked. sitter in place. will continue to monitor.
[2024-04-18 08:36] LABS: Glucose Point of Care 65 mg/dL (70-110)
[2024-04-18 13:39] VITALS: BP 109/62; PULSE 86; RESP 16; O2SAT 98
[2024-04-18 14:00] VITALS: BP 109/62; PULSE 86; RESP 16; O2SAT 98
[2024-04-18] MEDS: flu vacc pf 24-25 (6 mos+) SYRINGE 45 MCG IM (16:06)
--- NOTE | 2024-04-18 16:10 | PC.NURSE ---
FLU VACCINE GIVEN IM IN RIGHT DELTOID BY Austen SANCHEZ RN. TOLERATED INJECTION WILL, EDUCATED ON MED, WILL CONT TO MONITOR INJECTION SITE FOR ANY REDNESS, SWELLING, OR IRRITATION. LOT [id number] EXP 11/07/24
[2024-04-18 16:11] LABS: Estmated Average Glucose 88; Hemoglobin A1C 4.7 % (4.0-6.0)
--- NOTE | 2024-04-18 17:56 | PC.NURSE ---
Patient has a hx of type 2 diabetes. A1C collected, restuls are 4.7. Per Mary Jo Gunn discontinued.
[2024-04-18 19:58] LABS: Glucose Point of Care 125 mg/dL (70-110)
[2024-04-18 20:58] VITALS: BP 98/62; PULSE 66; RESP 18; TEMP 36.6; O2SAT 98
[2024-04-18] MEDS: trazodone 50 mg Tablet PO (21:02)
[2024-04-18] MEDS: prazosin 1 mg Capsule 2 MG PO (21:03)
[2024-04-18] MEDS: hyDROXYzine 25 mg Capsule 50 MG PO (21:03)
[2024-04-19 06:00] VITALS: BP 98/65; PULSE 83; RESP 18; TEMP 36.6; O2SAT 96
[2024-04-19 07:41] LABS: Glucose Point of Care 95 mg/dL (70-110)
[2024-04-19] MEDS: venlafaxine ER (24HR) 75 mg Capsule PO (09:17)
[2024-04-19 09:18] LABS: Glucose Point of Care 130 mg/dL (70-110)
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
[2024-04-19 11:38] LABS: Glucose Point of Care 105 mg/dL (70-110)
[2024-04-19 14:00] VITALS: RESP 16
[2024-04-19] MEDS: benzocaine 20% 7 gm 1 APPLIC MUCOUS MEM (14:38)
[2024-04-19 17:27] LABS: Glucose Point of Care 97 mg/dL (70-110)
[2024-04-19 20:09] LABS: Glucose Point of Care 120 mg/dL (70-110)
[2024-04-19 20:58] VITALS: BP 93/55; PULSE 68; RESP 17; TEMP 36.7; O2SAT 96
[2024-04-19] MEDS: prazosin 1 mg Capsule 2 MG PO (21:04)
[2024-04-19] MEDS: hyDROXYzine 25 mg Capsule 50 MG PO (21:05)
[2024-04-20 06:00] VITALS: BP 98/62; PULSE 88; RESP 17; TEMP 36.6; O2SAT 95
[2024-04-20 08:02] LABS: Glucose Point of Care 93 mg/dL (70-110)
[2024-04-20] MEDS: venlafaxine ER (24HR) 75 mg Capsule PO (08:22)
[2024-04-20] MEDS: hyDROXYzine 25 mg Capsule 50 MG PO ×2 (08:22→18:25)
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
[2024-04-20] MEDS: nicotine 2 mg Gum BUCCAL (09:55)
--- NOTE | 2024-04-20 11:59 | PC.NURSE ---
NEW ORDERS RECEIVED TO CHANGE BLOOD GLUCOSE ASSESSMENTS TO NEEDED. PT EDUCATED AND VERBALIZED UNDERSTANDING.
[2024-04-20 14:00] VITALS: BP 115/78; PULSE 78; RESP 18; TEMP 36.9; O2SAT 97
--- NOTE | 2024-04-20 18:25 | PC.NURSE ---
PRN VISTARIL 50 MG GIVEN PO PER PT C/O STATED ANXIETY
[2024-04-20 20:25] VITALS: BP 98/62; PULSE 59; RESP 14; TEMP 36.4; O2SAT 99
[2024-04-20] MEDS: trazodone 50 mg Tablet PO (20:35)
[2024-04-20] MEDS: prazosin 1 mg Capsule 2 MG PO (20:35)
[2024-04-21 06:00] VITALS: BP 88/58; PULSE 69; RESP 16; TEMP 36.7; O2SAT 96
[2024-04-21 06:49] LABS: Glucose Point of Care 86 mg/dL (70-110)
[2024-04-21] MEDS: hyDROXYzine 25 mg Capsule 50 MG PO (07:39)
[2024-04-21] MEDS: venlafaxine ER (24HR) 75 mg Capsule PO (08:29)
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
[2024-04-21 14:00] VITALS: BP 101/72; PULSE 66; RESP 16; TEMP 36.9; O2SAT 97
[2024-04-21 14:01] VITALS: BP 101/73; PULSE 69; RESP 16; TEMP 36.7; O2SAT 98
== END 2024-04-21 14:49 | disposition home or self-care (01) | DRG 881 ==
LOC: ER 14:28 → NP 04-18 12:50
PROVIDERS: Emergency Medicine; Admitting Provider Psychiatry & Neurology Psychiatry; Emergency Provider Family Medicine; Visit Provider Psychiatry & Neurology Psychiatry
DX: F32.A Depression, unspecified (principal); R45.851 Suicidal ideations; T43.206A Underdosing of unspecified antidepressants, initial encounter; F60.3 Borderline personality disorder; F10.21 Alcohol dependence, in remission; Y90.0 Blood alcohol level of less than 20 mg/100 ml; F41.9 Anxiety disorder, unspecified; F43.12 Post-traumatic stress disorder, chronic; E11.9 Type 2 diabetes mellitus without complications; J45.909 Unspecified asthma, uncomplicated; F17.210 Nicotine dependence, cigarettes, uncomplicated; Z91.51 Personal history of suicidal behavior; Z62.810 Personal history of physical and sexual abuse in childhood; Z81.8 Family history of other mental and behavioral disorders; Z11.52 Encounter for screening for COVID-19; Z23 Encounter for immunization
CPT/HCPCS: 0241U; 36415; 36416; 71045; 80053; 80306; 80307; 81001; 81025; 82962; 83036; 85025; 90471; 90686; 97150; 97165; 99285

== ENCOUNTER 2024-11-01 10:47 | Emergency (ER) | payer SELFPAY ==
[2024-11-01 10:52] VITALS: BP 105/67; PULSE 80; RESP 18; TEMP 36.7; O2SAT 98
--- OUTSIDE RECORDS SUMMARY | 2024-11-01 11:11 | XMS_ITS | Clinical Summary ---
Author Organization [facility] Address [address] [facility] [address] [place] [address] Phone Care Team Providers Care Fire Lieutenant Marine Name Role Phone Unavailable Primary Care Provider Unavailabl e Allergies Active Allergy Reactions Criticality Noted Date Comments Lavender Extract Shortness of Breath/Wheezing High 0 12/07/2021 Methylphenidate Anaphylaxis High 09/21/2021 Medications metFORMIN (GLUCOPHAGE) 500 mg tablet Take 500 mg by mouth daily with breakfast. Active levothyroxine sodium (LEVOTHYROXINE ORAL) Take by mouth. Active ondansetron (ZOFRAN ODT) 4 mg Tablet, Rapid Dissolve Place 1 Tablet (4 mg) under tongue every 8 hours as needed for Nausea/Emesis . Dissolve tablet on top of tongue, then swallow with saliva. 15 Tablet 04/05/2023 Active Active Problems Problem Noted Date Diagnosed Date Muscle spasms of neck 02/17/2022 Social History Tobacco Use Types Packs/Day Years Used Date Smoking Tobacco: Every Day Cigarettes Smokeless Tobacco: Never Tobacco Cessation:Ready to Q uit: Not Asked; Counseling Given: Not Answered Comments:2 ciggarettes daily Alcohol Use Standard Drinks/Week Comments Not Currently 0 (1 standard drink = 0.6 oz pur e alcohol) occasionally Feeling Safe Answer Date Recorded Are you in a relationship wi th someone who hurts you emotionally and/or physically? No 04/05/2023 Comments No Sex and Gender Information Value Date Recorded Sex Assigned at Not on file Legal Sex Female 9:45 PM CDT Gender Identity Not on file Sexual Orientation Not on file Last Filed Vital Signs Vital Sign Reading Time Taken Comments Blood Pressure 111/68 04/05/2023 8:27 PM COUNSELING AIDE Pulse 77 04/05/2023 8:27 PM COUNSELING AIDE Temperature 37.2 C (99 F) 04/05/2023 6:43 PM COUNSELING AIDE Respiratory Rate 20 04/05/2023 8:27 PM COUNSELING AIDE Oxygen Saturation 98% 04/05/2023 8:27 PM COUNSELING AIDE Inhaled Oxygen Concentration - - Weight 83.7 kg (184 lb 9.6 oz) 04/05/2023 6:43 P M COUNSELING AIDE Height 157.5 cm (5' 2 ) 04/05/2023 6:43 PM COUNSELING AIDE Body Mass Index 33.76 04/05/2023 6:43 PM COUNSELING AIDE Plan of Treatment Health Maintenance Due Date Last Done Comments DTAP/TDAP/TD VACCINES (1 - Tdap) 01/08/2016 HEPATITIS B VACCINES (1 of 3 - 19+ 3-dose series) 01/08/2016 CERVICAL CANCER SCREENING 2018 HPV/Cotest (21-29) 2018 PAP SMEAR 2018 INFLUENZA VACCINE (#1) 2023 HPV VACCINES Aged Out No longer eligi ble based on patient's age to complete this topic Insurance #[address] [place] [address] [place]
[2024-11-01 11:45] LABS: Basophils % 0.3 %; Eosinophils # 0.2 10^3/uL (0.0-0.8); Eosinophils % 2.4 %; Hematocrit 42.3 % (36-47); Lymphocytes # 2.3 10^3/uL (0.8-4.8); Lymphocytes % 31.2 %; Mean Corpuscular HGB Conc 34.3 g/dL (30-55); Mean Corpuscular Hemoglobin 31.3 pg (27-33); Mean Corpuscular Volume 91.2 fl (85-98); Monocytes # 0.4 10^3/uL (0.2-0.9); Neutrophils % 60.8 %; Nucleated Red Blood Cells % 0 %; Platelet Count 224 10^3/cmm (157-399); Red Blood Count 4.64 10^6/uL (3.85-5.65); Red Cell Distribution Width 12.7 % (12.1-15.1)
[2024-11-01 12:33] LABS: Slide Review Slide Review Perform
[2024-11-01 12:37] LABS: Alanine Aminotransferase 11 U/L (0-33); Albumin Level 4.1 g/dL (3.5-5.2); Alkaline Phosphatase 74 U/L (35-105); Anion Gap 17.6 (5-19); Aspartate Amino Transferase 16 U/L (0-32); Blood Urea Nitrogen 13 mg/dL (6-20); Calcium 8.7 mg/dL (8.5-10.5); Carbon Dioxide 20 mmol/L (22-29); Chloride 105 mmol/L (98-107); Creatinine Clr Calc Pharmacy 132.7482; Globulin 2.8 g/dL (1.3-4.6); Glomerular Filtration Rate 119.9 mL/min (90-130); Glucose 89 mg/dL (65-115); Osmolality Calculated 286 mOsm/kg (285-295); Potassium 4.6 mmol/L (3.5-5.1); Sodium 138 mmol/L (136-145); Total Bilirubin 0.3 mg/dL (0.15-1.2); Total Protein 6.9 g/dL (6.6-8.7)
== END 2024-11-01 12:46 | disposition left against medical advice (07) ==
LOC: ER 10:53
PROVIDERS: Emergency Medicine; Emergency Provider Family Medicine
DX: Z01.89 Encounter for other specified special examinations (principal); Z53.21 Procedure and treatment not carried out due to patient leaving prior to being seen by health care provider
CPT/HCPCS: 36415; 80053; 84702; 85025; 86850; 86900

== ENCOUNTER 2024-11-18 14:10 | Emergency (ER) | payer MEDICAID, SELFPAY ==
--- OUTSIDE RECORDS SUMMARY | 2024-11-18 14:17 | XMS_ITS | Clinical Summary ---
Author Organization [facility] Address [address] [place] [address] Phone Care Team Providers Care Edge Stainer Machine Name Role Phone Unavailable Primary Care Provider [...] Comments Blood Pressure 111/68 04/05/2023 8:27 PM CERTIFIED DIALYSIS TECHNICIAN Pulse 77 04/05/2023 8:27 PM CERTIFIED DIALYSIS TECHNICIAN Temperature 37.2 C (99 F) 04/05/2023 6:43 PM CERTIFIED DIALYSIS TECHNICIAN Respiratory Rate 20 04/05/2023 8:27 PM CERTIFIED DIALYSIS TECHNICIAN Oxygen Saturation 98% 04/05/2023 8:27 PM CERTIFIED DIALYSIS TECHNICIAN Inhaled Oxygen Concentration - - Weight 83.7 kg (184 lb 9.6 oz) 04/05/2023 6:43 P M CERTIFIED DIALYSIS TECHNICIAN Height 157.5 cm (5' 2 ) 04/05/2023 6:43 PM CERTIFIED DIALYSIS TECHNICIAN Body Mass Index 33.76 04/05/2023 6:43 PM CERTIFIED DIALYSIS TECHNICIAN Plan of Treatment Health Maintenance Due Date Last Done Comments DTAP/TDAP/TD VACCINES (1 - Tdap) 01/08/2016 HEPATITIS B VACCINES (1 of 3 - 19+ 3-dose series) 01/08/2016 CERVICAL CANCER SCREENING 2018 HPV/Cotest (21-29) 2018 PAP SMEAR 2018 INFLUENZA VACCINE (#1) 2024 HPV VACCINES Aged Out No longer eligi ble based on patient's age to complete this topic Insurance #[address] [place] [address] [place]
[2024-11-18 14:18] VITALS: PULSE 80; RESP 16; TEMP 36.4; O2SAT 98
--- NOTE | 2024-11-18 14:38 | W.ED.ANIMALB ---
HPI - Animal Bite General: Chief Complaint: Animal Bite Stated Complaint: Bite by dog, Time Seen by Provider: 11/18/24 14:27 Source: patient Mode of arrival: ambulatory Limitations: no limitations History of Present Illness: Patient is a 29-year-old female presents to ED today for evaluation of a dog bite to her right wrist that she sustained just prior to arrival. She states animal was her father's dog and not up-to-date on immunizations. She feels like the animal is acting normally but was fighting with another animal when she pulled his collar causing the dog to bite her. Last tetanus unknown. MD complaint: animal bite Onset (ago): hour(s) Animal: dog Description of animal: household pet and appeared well Mechanism: bite Location - Extremities: Right: forearm Context: animals fighting Associated symptoms: Reports no associated symptoms Related Data Previous Rx's ?Medication ?Instructions ?Recorded omeprazole magnesium 20 mg 20 mg PO DAILY 30 days #30 tabs 04/21/24 tablet,delayed release (Prilosec OTC) hydroxyzine HCl 50 mg tablet 50 mg PO BID PRN anxiety #15 tabs 04/22/24 trazodone 50 mg tablet 50 mg PO BEDTIME 30 days #30 tabs 04/22/24 venlafaxine 75 mg capsule,extended 75 mg PO QAM 30 days #30 caps 04/22/24 release 24 hr (Effexor XR) amoxicillin 875 mg-potassium 1 tab PO BID #14 tabs 11/18/24 clavulanate 125 mg tablet Allergies Allergy/AdvReac Type Severity Reaction Status Date / Time lavender (Lavandula Allergy Unknown Verified 04/22/24 10:20 angustifolia) jeffery Allergy ALGY-Hives Verified 04/22/24 10:20 methylphenidate (From Allergy ADR-Agitate Verified 04/22/24 10:20 Concerta) d Review of Systems Musc: Reports: extremity pain; Denies: extremity swelling, joint pain, joint swelling or joint redness Skin/Breast: Reports: other (dog bite R forearm) Neuro: Denies: numbness in extremities or sensory changes [facility] ED PFSH: Medical History Depression Asthma Type 2 diabetes mellitus Borderline personality disorder Cannabis use disorder Psychiatric care Hypothyroid TIA (transient ischemic attack) (~2018) not medically diagnosed; reported facial drooping, aphasia No pertinent past medical history neghx: htn,dm,thyroid,dvt/pe Migraine with aura Surgical History No pertinent past surgical history Family History Grandmother Breast cancer Maternal and Paternal--- 46, and late 40's Ovarian cancer Maternal-- dx age late 40's Family/Other Breast cancer Paternal aunt-- unknown dx age Heart disease Paternal Aunt Stroke Maternal uncle, Paternal aunts Father Diabetes Hypertension Grandfather Heart disease Maternal Stroke MGF Sister Thyroid disease Denies family history of Colon cancer Bleeding disorder Uterine cancer Social History Smoking and tobacco/nicotine status: current every day tobacco/nicotine user cigarettes Second hand smoke exposure: No Alcohol intake: never Substance/Drug Use: current Substance/Drug use frequency: daily Other substance/drug use details: cbd Adopted: No Caregiver/support person: No Lives independently: Yes Physical Exam Const: COMMON NORMALS: no acute distress, average body habitus, no limitations, healthy appearing, alert and well nourished Extremity: COMMON NORMALS: full ROM and capillary refill normal GENERAL: Yes normal exam except as noted RIGHT UPPER EXTREMITY: Yes lower arm OTHER: Multiple small superficial puncture wounds involving her right forearm without infection. Full ROM. NV intact. Neuro: COMMON NORMALS: moves all extremities, no focal motor deficits and no sensory deficits noted SENSORIUM/ORIENTATION: Yes alert Skin: NARRATIVE SKIN EXAM: see above Course Vital Signs: Vital signs: Vital Signs Temperature 97.6 F 11/18/24 14:18 Pulse Rate 74 11/18/24 14:48 Respiratory Rate 18 11/18/24 14:48 Blood Pressure 128/76 11/18/24 14:48 Pulse Oximetry 100 11/18/24 14:48 Oxygen Delivery Me thod Room Air 11/18/24 14:18 MDM - Animal Bite Medical Decision Making Wounds were copiously irrigated and dressed. Tetanus will be updated. She will be placed on prophylactic antibiotics. Rabies PEP would be indicated as she feels the dog cannot be quarantined and it was not up-to-date on immunizations. She states she is 8 weeks and is declining these today as she fears about taking these during . We did discuss risks versus benefits and that these are generally safe in and 100% effective in preventing rabies and that rabies is fatal in humans. Patient understands risks and declines. Differential Diagnosis Likely bite by animal and dog bite Medical Records I reviewed the patient's medical records. No radiology studies performed this visit Discharge Plan Discharge Patient Disposition: Home Clinical Impression: Dog bite of right forearm without complication Qualifiers: Encounter type: initial encounter Qualified Code(s): S51.851A - Open bite of right forearm, initial encounter Condition: Stable Prescriptions: New amoxicillin-pot clavulanate 875-125 mg tablet 1 tab PO BID Qty: 14 0RF No Action hydroxyzine HCl 50 mg tablet 50 mg PO BID PRN (Reason: anxiety) Qty: 15 2RF trazodone 50 mg tablet 50 mg PO BEDTIME 30 Days Qty: 30 2RF venlafaxine [Effexor XR] 75 mg capsule,extended release 24hr 75 mg PO QAM 30 Days Qty: 30 2RF omeprazole magnesium [Prilosec OTC] 20 mg tablet,delayed release (DR/EC) 20 mg PO DAILY 30 Days Qty: 30 1RF Discharge Orders: Discharge ED (Routine); Ordered 11/18/24 Ordered By: Grace Botello Patient Instructions: Animal Bite (ED), Patient Portal & Lily Instructions Activity Restrictions/Additional Instructions: Keep wounds clean with warm soap and water monitor for signs of infection such as redness, swelling, purulent drainage, streaking up your arm, fevers, or any other concerns you may have. Please seek medical reevaluation if these occur. You have declined rabies postexposure prophylaxis today. Tetanus has been updated. Please fill your antibiotics and start them immediately. Print Language: Qatari Coding Level of Care Code ED Gear Hobber Set Up Operator for Alondra Palacios
[2024-11-18] MEDS: tetanus-dipt-pertussis 0.5 mL SDV IM (14:47)
[2024-11-18 14:48] VITALS: BP 128/76; PULSE 74; RESP 18; O2SAT 100
== END 2024-11-18 14:49 | disposition home or self-care (01) ==
PROVIDERS: Emergency Provider Physician Assistant
DX: S51.851A Open bite of right forearm, initial encounter (principal); Z23 Encounter for immunization; W54.0XXA Bitten by dog, initial encounter; Z79.899 Other long term (current) drug therapy; E11.9 Type 2 diabetes mellitus without complications; E03.9 Hypothyroidism, unspecified; F17.210 Nicotine dependence, cigarettes, uncomplicated
CPT/HCPCS: 90471; 90715; 99283

== ENCOUNTER → 2024-11-22 07:55 | Outpatient (BNVA) | payer MEDICAID, SELFPAY | PROVIDERS: Visit Provider Nurse Practitioner Women's Health | DX: E11.9 Type 2 diabetes mellitus without complications (principal); N91.2 Amenorrhea, unspecified; Z34.90 Encounter for supervision of normal pregnancy, unspecified, unspecified trimester | CPT/HCPCS: 81025; 83036; 84702; 86850; 86900 ==

== ENCOUNTER → 2024-11-23 11:05 | Outpatient (BNVA) | payer MEDICAID, SELFPAY | PROVIDERS: Visit Provider Nurse Practitioner Women's Health | DX: O26.891 Other specified pregnancy related conditions, first trimester (principal); Z3A.12 12 weeks gestation of pregnancy | CPT/HCPCS: 76801 ==

== ENCOUNTER → 2024-12-09 08:27 | Outpatient (BNVA) | payer MEDICAID, SELFPAY | PROVIDERS: Visit Provider Nurse Practitioner Women's Health | DX: Z34.81 Encounter for supervision of other normal pregnancy, first trimester (principal) | CPT/HCPCS: 80307; 84315; 84443; 85025; 86592; 86762; 86803; 87086; 87340; 87491; 87591; 87661; 87806 ==

== ENCOUNTER → 2024-12-12 10:14 | Outpatient (BNVA) | payer MEDICAID, SELFPAY | PROVIDERS: Visit Provider Obstetrics & Gynecology | DX: Z34.81 Encounter for supervision of other normal pregnancy, first trimester (principal) | CPT/HCPCS: 82950; 84315 ==

== ENCOUNTER → 2024-12-15 13:27 | Outpatient (BNVA) | payer MEDICAID, SELFPAY | PROVIDERS: Visit Provider Nurse Practitioner Women's Health | DX: E03.9 Hypothyroidism, unspecified (principal) | CPT/HCPCS: 84439; 84481 ==

== ENCOUNTER → 2025-01-19 13:12 | Outpatient (BNVA) | payer BC, MEDICAID, SELFPAY | PROVIDERS: Visit Provider Nurse Practitioner Women's Health | DX: Z34.90 Encounter for supervision of normal pregnancy, unspecified, unspecified trimester (principal); Z67.91 Unspecified blood type, Rh negative | CPT/HCPCS: 82105; 84315 ==

== ENCOUNTER 2025-01-29 18:05 | Emergency (ER) | payer BC, MEDICAID, SELFPAY ==
--- OUTSIDE RECORDS SUMMARY | 2025-01-29 18:15 | XMS_ITS | Clinical Summary ---
Author Organization [facility] Address [address] [place] [address] Phone Care Team Providers Care Power And Recovery Supervisor Name Role Phone Unavailable Primary Care Provider [...] Comments Blood Pressure 111/68 04/05/2023 8:27 PM LOOM FIXER HELPER Pulse 77 04/05/2023 8:27 PM LOOM FIXER HELPER Temperature 37.2 C (99 F) 04/05/2023 6:43 PM LOOM FIXER HELPER Respiratory Rate 20 04/05/2023 8:27 PM LOOM FIXER HELPER Oxygen Saturation 98% 04/05/2023 8:27 PM LOOM FIXER HELPER Inhaled Oxygen Concentration - - Weight 83.7 kg (184 lb 9.6 oz) 04/05/2023 6:43 P M LOOM FIXER HELPER Height 157.5 cm (5' 2 ) 04/05/2023 6:43 PM LOOM FIXER HELPER Body Mass Index 33.76 04/05/2023 6:43 PM LOOM FIXER HELPER Plan of Treatment Health Maintenance Due Date Last Done Comments DTAP/TDAP/TD VACCINES (1 - Tdap) 01/08/2016 HEPATITIS B VACCINES (1 of 3 - 19+ 3-dose series) 12/11 CERVICAL CANCER SCREENING 2018 HPV/Cotest (21-29) 2018 PAP SMEAR 2018 HPV VACCINES (1 - 3-dose SCDM series) 01/08/2024 INFLUENZA VACCINE (#1) 2024 Insurance #[address] [place] [address] [place]
[2025-01-29 18:18] VITALS: BP 114/74; PULSE 100; RESP 18; TEMP 36.7; O2SAT 98
--- NOTE | 2025-01-29 18:22 | XRR_ITS ---
PROCEDURE INFORMATION: Exam: XR Chest Exam date and time: 01/29/2025 6:26 PM Age: 30 years old Clinical indication: Cough; Additional info: Cough, abd shield, TECHNIQUE: Imaging protocol: Radiologic exam of the chest. Views: 1 view. COMPARISON: CR XR chest 1V portable [id number] 04/17/2024 6:16 AM FINDINGS: Lungs: There is hazy opacity at the right lateral lung base. Pleural spaces: No pleural effusion. No pneumothorax. Heart/Mediastinum: Cardiac silhouette is normal in size for technique. Bones/joints: Age appropriate. XR/XR chest 1V portable [id number] IMPRESSION: Opacity at the right lateral lung base may reflect atelectasis or developing pneumonia.
[2025-01-29 18:40] VITALS: BP 96/60; PULSE 90; O2SAT 97
[2025-01-29 19:22] LABS: Respiratory Syncytial Virus Ce NEGATIVE (Negative); SARS-CoV-2 PCR NEGATIVE (Negative)
--- NOTE | 2025-01-29 19:32 | W.ED.GENADLT ---
HPI - General Adult General: Chief complaint: General Medical Stated complaint: Coughing up Phelm and Her Chest hurts Time Seen by Provider: 01/29/25 18:18 History of Present Illness: Patient is a 30-year-old female 18 weeks , presents to the emergency room with cough, shortness of breath, upper respiratory symptoms, and wheezing. She is currently working on not smoking tobacco products through a [employer] program. This has been going on the last 2 days. She had wheezing last night. She has sputum production with white, foamy sputum. She has not had any fever, chills. No exposure to illness. No sick contact. No nausea, vomiting. No abdominal pain. Associated symptoms: Reports dyspnea; Deny headache(s), nausea, rash or vomiting Related Data Home Medications ?Medication ?Instructions ?Recorded ?Confirmed QFP43-CP 400 mcg-om3 35 mg-dha 25 tab PO 11/22/24 01/28/25 mg-epa 5 mg-fish oil chewable tablet Previous Rx's ?Medication ?Instructions ?Recorded azithromycin 250 mg tablet See Rx Instructions PO .COMPLEX #6 01/29/25 tabs cefdinir 300 mg capsule 300 mg PO BID 10 days #20 caps 01/29/25 methylprednisolone 4 mg tablets in See Rx Instructions PO .COMPLEX 01/29/25 a dose pack (Medrol ([place])) #21 ea Allergies Allergy/AdvReac Type Severity Reaction Status Date / Time jeffery Allergy ALGY-Hives Verified 01/28/25 11:47 methylphenidate (From Allergy ADR-Agitate Verified 01/28/25 11:47 Concerta) d Review of Systems General: Reports: 10 or more systems reviewed and unremarkable except in HPI and below Const: Denies: fever(s) or chills Eyes: Denies: change in vision or blurry vision ENMT: Reports: ear or mastoid pain (fullness) and post nasal drip; Denies: throat pain or mouth pain Resp: Reports: dyspnea, productive cough, non-productive cough, wheezing, change in phlegm color and chest congestion; Denies: stridor, pain on inspiration or hemoptysis GI: Denies: abdominal pain, nausea or vomiting : Denies: flank pain or difficulty voiding Musc: Denies: neck pain, back pain, extremity pain or extremity swelling Skin/Breast: Denies: rash or pruritus Neuro: Denies: headache(s) or numbness in extremities Psych: Denies: anxiety or depression PFSH ED PFSH: Medical History (Updated 01/29/25 @ 19:42 by RODRI Ramos) Seasonal allergic rhinitis due to pollen Depression Asthma Type 2 diabetes mellitus without complication, without long-term current use of insulin Borderline personality disorder Cannabis use disorder Psychiatric care Hypothyroid TIA (transient ischemic attack) (~2018) not medically diagnosed; reported facial drooping, aphasia No pertinent past medical history neghx: htn,dm,thyroid,dvt/pe Migraine with aura Surgical History No pertinent past surgical history Family History Grandmother Breast cancer Maternal and Paternal--- 46, and late 40's Ovarian cancer Maternal-- dx age late 40's Family/Other Breast cancer Paternal aunt-- unknown dx age Heart disease Paternal Aunt Stroke Maternal uncle, Paternal aunts Father Diabetes Hypertension Grandfather Heart disease Maternal Stroke MGF Sister Thyroid disease Denies family history of Colon cancer Bleeding disorder Uterine cancer Social History Smoking and tobacco/nicotine status: never used tobacco/nicotine Second hand smoke exposure: No Alcohol intake: never Substance/Drug Use: current Substance/Drug use frequency: daily Other substance/drug use details: cbd Adopted: No Caregiver/support person: No Lives independently: Yes Physical Exam Const: COMMON NORMALS: no acute distress, patient oriented x3 and no limitations HENMT: COMMON NORMALS: normocephalic and atraumatic HEAD & SCALP: normocephalic and atraumatic FACE & SINUS: sinuses nontender NOSE: Nasal discharge present clear Lymph: LYMPHATIC: no lymphadenopathy noted Chest: COMMONS NORMALS: normal inspection of the chest and normal palpation of entire chest wall Resp: AUSCULTATION: rales on the right in the lower lung devine, wheezes scattered wheezes and bronchial breath sounds diffuse Cardio: COMMON NORMALS: regular rate and regular rhythm RATE: regular rate RHYTHM: regular rhythm GI: COMMON NORMALS: Normal to inspection, nondistended, normoactive bowel sounds present, Soft to palpation and non-tender PALPATION: Yes Soft to palpation : COMMON NORMALS: Yes no CVA tenderness BLADDER/KIDNEY EXAM: Yes no CVA tenderness Back/Pelvis: COMMON NORMALS: no CVA tenderness Neuro: COMMON NORMALS: patient oriented x3 Psych: COMMON NORMALS: mental status grossly normal, Normal thought process present and cooperative THOUGHT PROCESS: Normal thought process present Course Vital Signs: Vital signs: Vital Signs Temperature 98.1 F 01/29/25 18:18 Pulse Rate 88 01/29/25 20:12 Respiratory Rate 18 01/29/25 18:18 Blood Pressure 114/44 01/29/25 20:12 Pulse Oximetry 100 01/29/25 20:12 Oxygen Delivery Me thod Room Air 01/29/25 18:18 MDM - General Adult Medical Decision Making Patient is a 30-year-old female, 18 weeks , presents to ED with shortness of breath. Patient has right lower lobe infiltrate, hazy in nature. Chest x-ray official reading is pending. Will treat as a pneumonia given her symptoms. As well with her wheezing, second trimester, will treat with dexamethasone, and Medrol Dosepak. She does not meet criteria for admission with oxygen saturation of 98%. No additional red flags of concern. Wells score 0. She will follow-up with her primary OB Medical Records I reviewed the patient's medical records. Lab Data I reviewed the patient's lab results. Radiology Impressions Chest X-Ray 01/29/25 18:22 IMPRESSION: Opacity at the right lateral lung base may reflect atelectasis or developing pneumonia. Laboratory Results Influenza A (PCR) Negative (Negative) 01/29/25 18:35 Influenza Type B (PCR) Negative (Negative) 01/29/25 18:35 RSV (PCR) Negative (Negative) 01/29/25 18:35 SARS-CoV-2 (PCR) Negative (Negative) 01/29/25 18:35 XR interpretation done by ED provider, pending radiology final review Discharge Plan Discharge Patient Disposition: Home Clinical Impression: RLL pneumonia Qualifiers: Pneumonia type: due to unspecified organism Qualified Code(s): J18.9 - Pneumonia, unspecified organism Condition: Stable Prescriptions: New azithromycin 250 mg tablet See Rx Instructions .ROUTE .COMPLEX Qty: 6 0RF Rx Instructions: For 250 mg dose pack: take 500 mg today (day 1), then 250 mg for 4 days (days 2-5) methylprednisolone [Medrol ([place])] 4 mg tablets,dose pack See Rx Instructions .ROUTE .COMPLEX Qty: 21 0RF Rx Instructions: for 6 days cefdinir 300 mg capsule 300 mg PO BID 10 Days Qty: 20 0RF No Action [id number] oil 400 mcg-35 mg -25 mg-5 mg tablet,chewable PO Discharge Orders: Discharge ED (Routine); Ordered 01/29/25 Ordered By: Jaz Mccormack Referrals: Marcel Nowak RN [Primary Care Provider] Discharge Diet: Usual diet Discharge Activity: Resume usual activity Patient Instructions: Pneumonia - Bacterial, Patient Portal & Lily Instructions Activity Restrictions/Additional Instructions: - Return to ED with worsening shortness of breath -You have 2 antibiotics at the pharmacy. Make sure you take a probiotic or utilize active culture yogurt to avoid infectious diarrhea. You have already been started on azithromycin 500 mg, complete the pack with 250 mg the next 4 days for a total of 5 days. The cefdinir, utilize as directed. - Medrol Dosepak is at the pharmacy as well. Utilize as directed - You do not have COVID. No flu. Print Language: Eritrean Coding Level of Care Code ED Heavy Mobile Equipment Repairer for Alondra Palacios
[2025-01-29] MEDS: cefTRIAXone 1,000 MG in water for injection-sterile 2.1 ML 1 MG IM (19:48)
[2025-01-29 20:12] VITALS: BP 114/44; PULSE 88; O2SAT 100
== END 2025-01-29 20:13 | disposition home or self-care (01) ==
PROVIDERS: Emergency Provider Physician Assistant
DX: O99.512 Diseases of the respiratory system complicating pregnancy, second trimester (principal); J18.9 Pneumonia, unspecified organism; Z3A.18 18 weeks gestation of pregnancy; Z11.52 Encounter for screening for COVID-19; E11.9 Type 2 diabetes mellitus without complications; Z86.73 Personal history of transient ischemic attack (TIA), and cerebral infarction without residual deficits
CPT/HCPCS: 71045; 87637; 96372; 99284; J0696; J1100; J3535; Q0144

== ENCOUNTER 2025-02-09 13:30 | Outpatient (CLI) | payer BC, MEDICAID, SELFPAY ==
--- NOTE | 2025-02-09 14:15 | USR_ITS ---
PROCEDURE INFORMATION: Exam: US After First Trimester, Transabdominal Exam date and time: 02/09/2025 1:48 PM Age: 30 years old Clinical indication: Screening exam; Routine US, uterus; Additional info: Z34.90 - encounter for supervision of normal , u. . . , LABS AND CLINICAL REPORTS: Last menstrual period start date: Unknown Gestational age (Established): 19 w 5 d Estimated due date (Established): 07/01/2025 TECHNIQUE: Imaging protocol: Real-time transabdominal obstetrical ultrasound of the maternal pelvis and a second or third trimester with image documentation. COMPARISON: US OB <= 14 weeks fetus [id number] 11/23/2024 11:09 AM FINDINGS: Gestation: Single live intrauterine gestation. heart rate: 152 bpm. presentation and position: Breech. Placenta: Unremarkable. No subchorionic bleed. Placenta is anterior. Amniotic fluid (Qualitative): Amniotic fluid is normal for gestational age. ANATOMY: midline falx: Normal cerebellum: Not well-visualized lateral ventricles: Normal cisterna magna: Normal choroid plexus: Normal face: Normal nose and lips. Profile view not well-visualized heart four-chamber view, heart size and position: Not well visualized heart right ventricular outflow tract: Not well visualized heart left ventricular outflow tract: Not well visualized diaphragm: Normal kidneys: Normal stomach: Normal urinary bladder: Normal spine: Normal Umbilical cord and insertion: Normal. Normal 3 vessel cord upper limbs: Normal lower limbs: Normal BIOMETRY: Gestational age (AUA): 19 weeks 2 days Estimated due date (AUA): 07/04/2025 Estimated weight: 294.51 g. EFW by AC, BPD, FL, HC, Hadlock 1985, 32% percentile Biparietal diameter (BPD): 4.46 cm. EGA (BPD) is 19 w 3 d. 40.1 % percentile Head circumference (HC): 16.73 cm. EGA (HC) is 19 w 3 d. 27.7 % percentile Abdominal circumference (AC): 14.11 cm. EGA (AC) is 19 w 3 d. 36.8 % percentile Femur length (FL): 3.06 cm. EGA (FL) is 19 w 3 d. 33.6 % percentile HC/AC: 1.19. (Normal range: 1.09 - 1.26) FL/HC: 18.29. (Normal range: 16.3 - 18.73) FL/BPD: 68.61 FL/AC: 21.69 MATERNAL: Uterus: Unremarkable. Cervix: Cervical length measures 3.3 cm. Right ovary/adnexa: Obscured by lack of adequate acoustic window. Left ovary/adnexa: Obscured by lack of adequate acoustic window. Intraperitoneal space: No intraperitoneal free fluid. US/US OB >= 14 weeks fetus [id number] IMPRESSION: Single live intrauterine gestation with estimated age of 19 weeks 2 days and weight of 294.51 g.
== END 2025-02-09 13:31 | disposition home or self-care (01) ==
PROVIDERS: Visit Provider Nurse Practitioner Women's Health
DX: Z34.92 Encounter for supervision of normal pregnancy, unspecified, second trimester (principal); Z3A.19 19 weeks gestation of pregnancy
CPT/HCPCS: 76805

== ENCOUNTER → 2025-02-20 09:01 | Outpatient (BNVA) | payer BC, MEDICAID, SELFPAY | PROVIDERS: Visit Provider Obstetrics & Gynecology | DX: O26.892 Other specified pregnancy related conditions, second trimester (principal); Z3A.21 21 weeks gestation of pregnancy; Z67.91 Unspecified blood type, Rh negative | CPT/HCPCS: 84315 ==

== ENCOUNTER 2025-02-23 15:07 | Outpatient (CLI) | payer BC, MEDICAID, SELFPAY ==
--- NOTE | 2025-02-23 15:30 | USR_ITS ---
PROCEDURE INFORMATION: Exam: US , Follow up Exam date and time: 02/23/2025 3:49 PM Age: 30 years old Clinical indication: Screening exam; Routine US, uterus; Additional info: Z36.89 - encounter for other specified screening, cerebellum: Not well-visualized LABS AND CLINICAL REPORTS: Gestational age (Established): 21 w 5 d Estimated due date (Established): 07/01/2025 TECHNIQUE: Imaging protocol: Transabdominal ultrasound of the uterus, real time with image documentation. Follow-up (eg, re-evaluation of size by measuring standard growth parameters and amniotic fluid volume, re-evaluation of organ system(s) suspected or confirmed to be abnormal on a previous scan). COMPARISON: US OB >= 14 weeks fetus [id number] 02/09/2025 1:48 PM FINDINGS: Gestation: Intrauterine gestation. heart rate: 142 bpm presentation and position: Cephalic. Placenta: Anterior. ANATOMY: cerebellum: Normal. face: Normal. heart four-chamber view, heart size and position: Normal. heart right ventricular outflow tract: Normal. heart left ventricular outflow tract: Normal. MATERNAL: Cervix: Cervical length measures 4 cm[place] US[place] [id number] IMPRESSION: 1. Single live intrauterine with normal heart rate. 2. anatomy as above, not well visualized on the prior examination, appears within normal limits.
== END 2025-02-23 15:08 | disposition home or self-care (01) ==
LOC: RAD 15:08
PROVIDERS: Visit Provider Nurse Practitioner Women's Health
DX: Z36.89 Encounter for other specified antenatal screening (principal); Z3A.21 21 weeks gestation of pregnancy
CPT/HCPCS: 76816

== ENCOUNTER → 2025-03-13 13:43 | Outpatient (BNVA) | payer BC, MEDICAID, SELFPAY | PROVIDERS: Visit Provider Nurse Practitioner Women's Health | DX: O26.892 Other specified pregnancy related conditions, second trimester (principal); Z3A.24 24 weeks gestation of pregnancy; Z67.41 Type O blood, Rh negative | CPT/HCPCS: 84315 ==

== ENCOUNTER 2025-04-12 16:09 | Outpatient (CLI) | payer BC, MEDICAID, SELFPAY ==
[2025-04-12 16:09] VITALS: BMI 41.9
[2025-04-12 16:23] VITALS: BP 119/60; PULSE 102
[2025-04-12 16:30] VITALS: RESP 14
[2025-04-12 17:57] VITALS: BP 129/62; PULSE 89
== END 2025-04-12 18:19 | disposition home or self-care (01) ==
LOC: OPOB 16:18 → OBGYN 16:18
PROVIDERS: Visit Provider Obstetrics & Gynecology
DX: O26.899 Other specified pregnancy related conditions, unspecified trimester (principal); Z3A.00 Weeks of gestation of pregnancy not specified; N89.8 Other specified noninflammatory disorders of vagina; M54.50 Low back pain, unspecified
CPT/HCPCS: 59025; 84112; 99211

== ENCOUNTER → 2025-04-17 09:45 | Outpatient (BNVA) | payer BC, MEDICAID, SELFPAY | PROVIDERS: Visit Provider Obstetrics & Gynecology | DX: O26.893 Other specified pregnancy related conditions, third trimester (principal); Z3A.29 29 weeks gestation of pregnancy; Z67.41 Type O blood, Rh negative; E11.9 Type 2 diabetes mellitus without complications | CPT/HCPCS: 82950; 84315; 85025; 86850 ==

== ENCOUNTER 2025-04-30 21:13 | Outpatient (CLI) | payer BC, MEDICAID, SELFPAY ==
[2025-04-30 21:15] VITALS: BMI 43.9
[2025-04-30 21:32] VITALS: BP 124/56; PULSE 94
[2025-04-30 21:47] VITALS: BP 116/57; PULSE 93
[2025-04-30 22:02] VITALS: BP 120/57; PULSE 89
[2025-04-30 22:06] LABS: Glucose Urine UA Negative (Normal); Nitrate Urine Negative (Negative); Specific Gravity, Urine 1.014 (1.005-1.030)
[2025-04-30 22:17] VITALS: BP 106/56; PULSE 90
[2025-04-30 22:32] VITALS: BP 109/57; PULSE 85
[2025-04-30 22:40] VITALS: BP 109/57; PULSE 85; RESP 16; TEMP 36.4; O2SAT 97
== END 2025-04-30 22:41 | disposition home or self-care (01) ==
LOC: OPOB 21:17 → OBGYN 21:18
PROVIDERS: Visit Provider Obstetrics & Gynecology
DX: O26.899 Other specified pregnancy related conditions, unspecified trimester (principal); Z3A.00 Weeks of gestation of pregnancy not specified; R10.9 Unspecified abdominal pain; M54.9 Dorsalgia, unspecified
CPT/HCPCS: 59025; 81001; 99211

== ENCOUNTER 2025-05-07 00:03 | Outpatient (CLI) | payer BC, MEDICAID, SELFPAY ==
[2025-05-07 00:18] VITALS: BP 120/63; PULSE 95; TEMP 36.2
[2025-05-07 00:28] VITALS: BMI 44.3
[2025-05-07 00:33] VITALS: BP 109/59; PULSE 94
[2025-05-07 00:44] VITALS: TEMP 36.1
[2025-05-07 00:50] VITALS: BP 109/59; PULSE 94; RESP 16; TEMP 36.1; O2SAT 98
== END 2025-05-07 00:50 | disposition home or self-care (01) ==
LOC: OPOB 00:03 → OBGYN 00:04
PROVIDERS: Visit Provider Obstetrics & Gynecology
DX: O26.899 Other specified pregnancy related conditions, unspecified trimester (principal); Z3A.00 Weeks of gestation of pregnancy not specified; N89.8 Other specified noninflammatory disorders of vagina
CPT/HCPCS: 59025; 99211